=== PATIENT | male | born 1945 | race Hispanic/Latino ===

== ENCOUNTER 2017-09-15 10:39 | Emergency (ER) | payer MEDICARE, MEDICAID | END 2017-09-15 15:20 | disposition home or self-care (01) | LOC: ERS 10:39 | DX: Z43.1 Encounter for attention to gastrostomy (principal) | CPT/HCPCS: 99284 ==

== ENCOUNTER 2018-06-05 07:13 | Inpatient (IN) | payer MEDICARE, MEDICAID ==
[2018-06-05 08:04] LABS: #Eosinphils 1.2 thou/uL (0.0-0.7); #Lymphocytes 2.3 thou/uL (1.20-3.40); #Neutrophils 6.6 thou/uL (1.40-6.50); %Basophils 0.2 % (0.0-1.0); %Eosinophils 10.8 % (0.0-10.0); %Lymphocytes 20.4 % (21.0-51.0); %Neutrophils 59.6 % (42.0-75.0); Hemoglobin 13.3 g/dL (14.0-18.0); Mean Corpuscular HGB CONC 32.3 g/dL (32.0-36.0); Mean Corpuscular Hemoglobin 27.5 pg (27.0-31.0); Mean Corpuscular Volume 84.9 fL (78.0-98.0); Mean Platelet Volume 8.2 fL (7.4-10.4); Platelet Count 207 thou/uL (130-400); RBC Distribution Width 13.6 % (11.5-14.5); Red Blood Cell (RBC) Count 4.86 mill/uL (4.70-6.10); White Blood Cell (WBC) Count 11.1 thou/uL (4.8-10.8)
[2018-06-05 08:23] LABS: ALT (SGPT) 17 U/L (8-55); AST (SGOT) 16 U/L (5-34); Albumin 3.7 g/dL (3.4-4.8); Alkaline Phosphatase 104 U/L (40-150); Anion Gap 12 mmol/L (10-20); BUN (Urea Nitrogen) 20 mg/dL (8.4-25.7); Bilirubin, Total 0.5 mg/dL (0.2-1.2); Calc. Creatinine Clearance 0 mL/min (70-130); Calcium 9.2 mg/dL (7.8-10.44); Carbon Dioxide 27 mmol/L (23-31); Chloride 108 mmol/L (98-107); Estimated GFR-MDRD Greater than 90; Glucose 122 mg/dL (83-110); Potassium 4.5 mmol/L (3.5-5.1); Protein, Total 7.7 g/dL (5.8-8.1); Sodium 142 mmol/L (136-145)
--- NOTE | 2018-06-05 08:39 | RAD ---
SEMIUPRIGHT PORTABLE CHEST 1 VIEW: HISTORY: A 73-year-old male with a history of dyspnea and low O2 saturation. COMPARISON: 04/15/13. FINDINGS: Monitor leads overlie the chest. Minimal pleural and parenchymal changes in the left base which appe ar new. The right lung is clear. Heart size is upper range of normal. IMPRESSION: Minimal mostly pleural and minimal parenchymal opacity changes in the left base, evidence for a small left pleural effusion with some possible minimal or early pneumonia or pneumonitis or subsegmental a telectasis as well. Clear right chest. Atherosclerosis of the aorta. Continued short-term followup . POS: KO
[2018-06-05] MEDS ORDERED: Piperacillin/Tazobactam 4.5 GM VIAL ONE (08:44)
[2018-06-05 09:07] LABS: Base Excess-Venous 3.2 mmol/L (0 (+/- 2.5)); Bicarbonate (HCO3v) 28.6 mmol/L (1.0-85.0); Calcium, Ionized 1.18 mmol/L (1.12-1.32); Hemoglobin - Calc 14.9 g/dL (12.0-18.0); O2 Tension (PvO2) 82.3 mmHg (35.0-45.0); Potassium 4.2 mmol/L (3.4-4.7); pH (Venous) 7.411 (7.35-7.45); vO2 Saturation-calc 96.1 % (94-98)
[2018-06-05 09:12] LABS: Bilirubin Negative (Negative); Blood, Urine Negative (Negative); Glucose, Urine (Dipstick) Negative (Negative); Leukocyte Negative (Negative); Nitrite Negative (Negative); Protein, Urine (Dipstick) Trace mg/dL (Neg-Trace); Specific Gravity, Urine 1.023 (1.002-1.036); pH, Urine 7.5 (5.0-9.0)
[2018-06-05 09:17] LABS: Clarity Slightly Cloudy (Clear)
[2018-06-05] MEDS ORDERED: Acetaminophen 325 MG TAB ONE (10:38)
[2018-06-05] MEDS ORDERED: diphenhydrAMINE 50 MG/ML VIAL ONE (11:04)
[2018-06-06] MEDS ORDERED: Polyethylene Glycol 3350 17 GM Packet PER TUBE PRN (00:43)
[2018-06-06] MEDS ORDERED: Acetaminophen 325 MG TAB PO PRN (00:44)
[2018-06-06] MEDS ORDERED: Fleet Enema 133 ML BOT PR PRN (00:44)
[2018-06-06] MEDS ORDERED: Ondansetron ODT 4 MG TAB PO PRN (00:44)
[2018-06-06] MEDS ORDERED: Ondansetron HCl/PF 4 MG/2 ML Vial IVP PRN (00:44)
[2018-06-06] MEDS ORDERED: Bisacodyl 5 MG TAB PO PRN (00:44)
[2018-06-06] MEDS ORDERED: Acetaminophen 650 MG/20.3 ML UDCUP PER TUBE PRN (00:44)
[2018-06-06] MEDS ORDERED: Enoxaparin Sodium 40 MG/0.4 ML SYRINGE SC SCH (00:45)
[2018-06-06] MEDS: Acetaminophen 650 MG/20.3 ML UDCUP PER TUBE PRN (01:02)
[2018-06-06] MEDS: Sodium Chloride 0.9% 1,000 ML IV SCH ×3 (01:03→17:20)
[2018-06-06] MEDS: Vancomycin HCl 1.5 GM in Sodium Chloride 0.9% 250 ML 300 ML IVPB SCH ×2 (01:21→15:43)
[2018-06-06] MEDS: Piperacillin/Tazobactam 4.5 GM in Sodium Chloride 0.9% 100 ML IVPB SCH ×4 (04:33→20:18)
[2018-06-06 05:06] LABS: #Eosinphils 1.2 thou/uL (0.0-0.7); #Lymphocytes 1.3 thou/uL (1.20-3.40); #Monocytes 0.7 thou/uL (0.11-0.59); #Neutrophils 7.4 thou/uL (1.40-6.50); %Eosinophils 11.5 % (0.0-10.0); %Lymphocytes 12.4 % (21.0-51.0); %Monocytes 6.7 % (0.0-10.0); %Neutrophils 69.4 % (42.0-75.0); Hemoglobin 12.6 g/dL (14.0-18.0); Mean Corpuscular HGB CONC 32.6 g/dL (32.0-36.0); Mean Corpuscular Hemoglobin 27.8 pg (27.0-31.0); Mean Corpuscular Volume 85.3 fL (78.0-98.0); Mean Platelet Volume 8.4 fL (7.4-10.4); Platelet Count 209 thou/uL (130-400); RBC Distribution Width 13.5 % (11.5-14.5); Red Blood Cell (RBC) Count 4.54 mill/uL (4.70-6.10); White Blood Cell (WBC) Count 10.7 thou/uL (4.8-10.8)
[2018-06-06] MEDS: Baclofen 10 MG TAB PER TUBE SCH ×2 (05:20→20:20)
[2018-06-06 05:30] LABS: Anion Gap 12 mmol/L (10-20); BUN (Urea Nitrogen) 21 mg/dL (8.4-25.7); Calc. Creatinine Clearance 97 mL/min (70-130); Calcium 8.7 mg/dL (7.8-10.44); Carbon Dioxide 24 mmol/L (23-31); Chloride 111 mmol/L (98-107); Estimated GFR-MDRD Greater than 90; Glucose 137 mg/dL (83-110); Potassium 3.8 mmol/L (3.5-5.1); Sodium 143 mmol/L (136-145)
[2018-06-06] MEDS: Amlodipine 10 MG TAB PER TUBE SCH (10:16)
[2018-06-06] MEDS: Famotidine 20 MG TAB PER TUBE SCH ×2 (10:19→20:19)
[2018-06-06] MEDS: Metoclopramide HCl 10 MG TAB PER TUBE SCH ×2 (10:19→20:20)
[2018-06-06] MEDS: traMADol HCl 50 MG TAB PER TUBE SCH ×2 (10:19→20:20)
[2018-06-06] MEDS: Lisinopril 20 MG TAB PER TUBE SCH (10:21)
[2018-06-06] MEDS: Docusate Sodium 100 MG/10 ML UDCUP PER TUBE SCH ×2 (10:24→20:19)
--- NOTE | 2018-06-06 18:57 | PDOC.PN ---
- Subjective Encounter Start Date: 06/06/18 Encounter Start Time: 18:40 Subjective: f/u for HCAP, paraplegia and chronic dysphagia with PEG tube. Remains -: aphasic but tracks with eyes and head. Receiving Vanc/Zosyn currently. -: Nsg reports clogged PEG tube. - Objective MAR Reviewed: Yes Vital Signs & Weight: Vital Signs (12 hours) Temp Pulse Resp BP BP Pulse Ox 06/06/18 16:55 98.5 F 83 16 107/70 92 L 06/06/18 11:27 97.7 F 72 16 125/79 93 L 06/06/18 10:21 113/76 06/06/18 10:16 83 113/76 06/06/18 08:00 97.7 F 72 16 93 L 06/06/18 07:36 98.1 F 83 16 99/66 93 L Weight Weight 158 lb 11.725 oz I&O: 06/05/18 06/06/18 06/07/18 06:59 06:59 06:59 Intake Total 1100 40 Balance 1100 40 Result Diagrams: 06/06/18 04:06 06/06/18 04:06 Additional Labs: Microbiology 06/05/18 07:53 Venous blood - Left Hand Blood Culture - Preliminary Specimen has been received and culture in progress. No Growth to date. 06/05/18 07:45 Venous blood - Right Hand Blood Culture - Preliminary Specimen has been received and culture in progress. No Growth to date. Laboratory Tests 06/05/18 07:53 WBC 11.1 H Radiology Reviewed by me: Yes (PCXR - LLL infiltrate) Phys Exam - Physical Examination alert, tracks with eyes/head, aphasic HEENT: PERRLA, sclera anicteric, oral pharynx no lesions Neck: no nodes, no JVD, supple, full ROM coarse sounds bilat Respiratory: no wheezing S1, S2 Cardiovascular: RRR, no significant murmur, no rub, gallop PEG intact in epigastric region Gastrointestinal: soft, non-tender, no distention, positive bowel sounds contractures in all extremities, generalized atrophy Musculoskeletal: no edema, pulses present Skin: no rash, normal turgor, cap refill <2 seconds Dx/Plan (1) Healthcare-associated pneumonia Code(s): J18.9 - PNEUMONIA, UNSPECIFIED ORGANISM Status: Acute Comment: LLL involvement, continue Zosyn/Vancomycin, pulm support, O2 PRN (2) Dysphagia Code(s): R13.10 - DYSPHAGIA, UNSPECIFIED Status: Chronic Qualifiers: Dysphagia type: oropharyngeal phase Qualified Code(s): R13.12 - Dysphagia, oropharyngeal phase Comment: s/p PEG tube placement, monitor for recurrence (3) Acute hypernatremia Code(s): E87.0 - HYPEROSMOLALITY AND HYPERNATREMIA Status: Acute Comment: Secondary to dehydration, continue IVF's and monitor serial Na+ (4) Dementia Code(s): F03.90 - UNSPECIFIED DEMENTIA WITHOUT BEHAVIORAL DISTURBANCE Status: Chronic Comment: continue supportive mgmt (5) Hypertension Code(s): I10 - ESSENTIAL (PRIMARY) HYPERTENSION Status: Chronic Qualifiers: Hypertension type: essential hypertension Qualified Code(s): I10 - Essential (primary) hypertension Comment: Continue Lisinopril and Amlodipine, serial BP monitoring - Plan continue antibiotics, social work job titles, speech therapy, respiratory therapy, DVT proph w/SCDs Stable overall -: Continue Vancomycin/Zosyn -: Pulmonary supportive measures -: Nutritional support with TF's -: AM lab: BMP, CBC * Soda/bicarbonate for occluded PEG
[2018-06-06] MEDS: traZODone HCl 50 MG TAB PER TUBE SCH (20:19)
[2018-06-06] MEDS: Simvastatin 40 MG TAB PER TUBE SCH (20:20)
[2018-06-06] MEDS: Senokot 8.6 MG TAB PER TUBE SCH (20:21)
[2018-06-07] MEDS: Vancomycin HCl 1.5 GM in Sodium Chloride 0.9% 250 ML 300 ML IVPB SCH ×2 (02:08→14:08)
[2018-06-07 04:37] LABS: Anion Gap 10 mmol/L (10-20); BUN (Urea Nitrogen) 16 mg/dL (8.4-25.7); Calc. Creatinine Clearance 105 mL/min (70-130); Calcium 8.4 mg/dL (7.8-10.44); Carbon Dioxide 24 mmol/L (23-31); Chloride 113 mmol/L (98-107); Estimated GFR-MDRD Greater than 90; Glucose 126 mg/dL (83-110); Sodium 143 mmol/L (136-145)
[2018-06-07] MEDS: Piperacillin/Tazobactam 4.5 GM in Sodium Chloride 0.9% 100 ML IVPB SCH ×4 (04:43→20:23)
[2018-06-07] MEDS: Baclofen 10 MG TAB PER TUBE SCH ×2 (04:43→20:23)
[2018-06-07 05:16] LABS: Band 1 % (5-11); Hemoglobin 12.5 g/dL (14.0-18.0); Hypochromia SLIGHT = 6-15 cells (100X) (0-5/hpf); Lymphocytes 11 % (21-51); MDiff Complete? YES; Mean Corpuscular HGB CONC 32.6 g/dL (32.0-36.0); Mean Corpuscular Volume 86.1 fL (78.0-98.0); Mean Platelet Volume 8.5 fL (7.4-10.4); Neutrophil 88 % (42-75); PLT Morphology Comment Appears Adequate; Platelet Count 208 thou/uL (130-400); RBC Distribution Width 13.7 % (11.5-14.5); Red Blood Cell (RBC) Count 4.44 mill/uL (4.70-6.10); White Blood Cell (WBC) Count 9.2 thou/uL (4.8-10.8)
[2018-06-07] MEDS: Famotidine 20 MG TAB PER TUBE SCH ×2 (08:30→20:23)
[2018-06-07] MEDS: Docusate Sodium 100 MG/10 ML UDCUP PER TUBE SCH ×2 (08:30→20:22)
[2018-06-07] MEDS: Amlodipine 10 MG TAB PER TUBE SCH (08:30)
[2018-06-07] MEDS: traMADol HCl 50 MG TAB PER TUBE SCH ×2 (08:30→20:24)
[2018-06-07] MEDS: Metoclopramide HCl 10 MG TAB PER TUBE SCH ×2 (08:30→20:24)
[2018-06-07] MEDS: Lisinopril 20 MG TAB PER TUBE SCH (08:30)
[2018-06-07] MEDS: Sodium Chloride 0.9% 1,000 ML IV SCH (10:30)
--- NOTE | 2018-06-07 13:27 | PDOC.PN ---
- Subjective Encounter Start Date: 06/07/18 Encounter Start Time: 13:20 Subjective: f/u for HCAP, chronic dysphagia, paraplegia on current Zosyn/ Vancomycin -: No new issues reported. Tolerating TF's with Jevity 1.2 @ 55ml/h - Objective MAR Reviewed: Yes Vital Signs & Weight: Vital Signs (12 hours) Temp Pulse Resp BP BP BP Pulse Ox 06/07/18 11:43 98.5 F 82 16 99/61 93 L 06/07/18 08:30 82 136/76 06/07/18 08:00 99.3 F 83 18 94 L 06/07/18 04:00 98.8 F 87 18 156/82 H 96 Weight Weight 158 lb 11.725 oz I&O: 06/06/18 06/07/18 06/08/18 06:59 06:59 06:59 Intake Total 1100 840 30 Balance 1100 840 30 Result Diagrams: 06/07/18 03:36 06/07/18 03:36 Additional Labs: Microbiology 06/05/18 07:53 Venous blood - Left Hand Blood Culture - Preliminary Specimen has been received and culture in progress. No Growth to date. 06/05/18 07:53 Venous blood - Left Hand Blood Culture - Preliminary NO GROWTH AT 48 HOURS 06/05/18 07:45 Venous blood - Right Hand Blood Culture - Preliminary Specimen has been received and culture in progress. No Growth to date. 06/05/18 07:45 Venous blood - Right Hand Blood Culture - Preliminary NO GROWTH AT 48 HOURS Laboratory Tests 06/05/18 06/06/18 06/07/18 07:53 04:06 03:36 WBC 11.1 H 10.7 Neutrophils % 59.6 69.4 Neutrophils % (Manual) 88 H Phys Exam - Physical Examination Constitutional: NAD alert, blinks occasionally to questions HEENT: PERRLA, sclera anicteric, oral pharynx no lesions Neck: no nodes, no JVD, supple, full ROM scatttered coarse sounds in bases Respiratory: no wheezing S1, S2 Cardiovascular: RRR, no significant murmur, no rub, gallop PEG in place Gastrointestinal: soft, non-tender, no distention, positive bowel sounds contractures in all extremities Musculoskeletal: no edema, pulses present paraplegia Skin: no rash, normal turgor, cap refill <2 seconds Dx/Plan (1) Healthcare-associated pneumonia Code(s): J18.9 - PNEUMONIA, UNSPECIFIED ORGANISM Status: Acute Comment: LLL involvement, continue Zosyn/Vancomycin, pulm support, O2 PRN (2) Dysphagia Code(s): R13.10 - DYSPHAGIA, UNSPECIFIED Status: Chronic Qualifiers: Dysphagia type: oropharyngeal phase Qualified Code(s): R13.12 - Dysphagia, oropharyngeal phase Comment: s/p PEG tube placement, monitor for recurrence and measure gastric residuals (3) Acute hypernatremia Code(s): E87.0 - HYPEROSMOLALITY AND HYPERNATREMIA Status: Acute Comment: Secondary to dehydration, continue IVF's and monitor serial Na+, resolving (4) Dementia Code(s): F03.90 - UNSPECIFIED DEMENTIA WITHOUT BEHAVIORAL DISTURBANCE Status: Chronic Comment: continue supportive mgmt (5) Hypertension Code(s): I10 - ESSENTIAL (PRIMARY) HYPERTENSION Status: Chronic Qualifiers: Hypertension type: essential hypertension Qualified Code(s): I10 - Essential (primary) hypertension Comment: Continue Lisinopril and Amlodipine, serial BP monitoring - Plan continue antibiotics, social services specialist, speech therapy, DVT proph w/SCDs Stable overall -: Continue Zosyn/Vancomycin -: Nutritional support with Jevity 1.2 @ 55ml/h -: Continue IVF's another 24h then d/c -: AM lab: BMP, CBC * .
[2018-06-07 13:33] LABS: Vancomycin, Trough 19.8 ug/mL
[2018-06-07] MEDS: traZODone HCl 50 MG TAB PER TUBE SCH (20:23)
[2018-06-07] MEDS: Senokot 8.6 MG TAB PER TUBE SCH (20:24)
[2018-06-07] MEDS: Simvastatin 40 MG TAB PER TUBE SCH (20:24)
[2018-06-08] MEDS: Vancomycin HCl 1.5 GM in Sodium Chloride 0.9% 250 ML 300 ML IVPB SCH ×2 (02:49→14:29)
[2018-06-08] MEDS: Sodium Chloride 0.9% 1,000 ML IV SCH (02:53)
[2018-06-08 04:46] LABS: Band 4 % (5-11); Eosinophils 21 % (0-10); Hemoglobin 12.8 g/dL (14.0-18.0); Lymphocytes 18 % (21-51); MDiff Complete? YES; Mean Corpuscular HGB CONC 32.3 g/dL (32.0-36.0); Mean Corpuscular Hemoglobin 27.5 pg (27.0-31.0); Mean Corpuscular Volume 85.1 fL (78.0-98.0); Monocytes 7 % (0-10); Neutrophil 50 % (42-75); PLT Morphology Comment Appears Adequate; Platelet Count 214 thou/uL (130-400); RBC Distribution Width 13.4 % (11.5-14.5); Red Blood Cell (RBC) Count 4.65 mill/uL (4.70-6.10); White Blood Cell (WBC) Count 10.9 thou/uL (4.8-10.8)
[2018-06-08] MEDS: Piperacillin/Tazobactam 4.5 GM in Sodium Chloride 0.9% 100 ML IVPB SCH ×4 (04:53→22:04)
[2018-06-08] MEDS: Baclofen 10 MG TAB PER TUBE SCH ×2 (04:53→20:16)
[2018-06-08 04:57] LABS: Anion Gap 10 mmol/L (10-20); BUN (Urea Nitrogen) 11 mg/dL (8.4-25.7); Calc. Creatinine Clearance 103 mL/min (70-130); Calcium 8.4 mg/dL (7.8-10.44); Carbon Dioxide 25 mmol/L (23-31); Chloride 108 mmol/L (98-107); Estimated GFR-MDRD Greater than 90; Glucose 91 mg/dL (83-110); Potassium 4.1 mmol/L (3.5-5.1); Sodium 139 mmol/L (136-145)
[2018-06-08] MEDS: traMADol HCl 50 MG TAB PER TUBE SCH ×2 (07:55→20:16)
[2018-06-08] MEDS: Lisinopril 20 MG TAB PER TUBE SCH (07:56)
[2018-06-08] MEDS: Metoclopramide HCl 10 MG TAB PER TUBE SCH ×2 (08:00→20:15)
[2018-06-08] MEDS: Amlodipine 10 MG TAB PER TUBE SCH (08:00)
[2018-06-08] MEDS: Famotidine 20 MG TAB PER TUBE SCH ×2 (08:00→20:15)
[2018-06-08] MEDS: Docusate Sodium 100 MG/10 ML UDCUP PER TUBE SCH ×2 (08:01→20:16)
[2018-06-08 13:55] LABS: Vancomycin, Trough 18.8 ug/mL
--- NOTE | 2018-06-08 14:03 | PDOC.PN ---
- Subjective Encounter Start Date: 06/08/18 Encounter Start Time: 14:00 -: non-verbal Subjective: f/u for HCAP on current Zosyn/Vancomycin. No fever documented. - Objective MAR Reviewed: Yes Vital Signs & Weight: Vital Signs (12 hours) Temp Pulse Resp BP BP Pulse Ox 06/08/18 08:00 79 118/82 06/08/18 07:56 118/82 06/08/18 07:32 97.8 F 79 18 118/82 93 L Weight Weight 158 lb 11.725 oz I&O: 06/07/18 06/08/18 06/09/18 06:59 06:59 06:59 Intake Total 840 3175 Output Total 2 Balance 840 3173 Result Diagrams: 06/08/18 04:19 06/08/18 04:19 Additional Labs: Microbiology 06/05/18 07:53 Venous blood - Left Hand Blood Culture - Preliminary Specimen has been received and culture in progress. No Growth to date. 06/05/18 07:53 Venous blood - Left Hand Blood Culture - Preliminary NO GROWTH AT 48 HOURS 06/05/18 07:45 Venous blood - Right Hand Blood Culture - Preliminary Specimen has been received and culture in progress. No Growth to date. 06/05/18 07:45 Venous blood - Right Hand Blood Culture - Preliminary NO GROWTH AT 48 HOURS Laboratory Tests 06/05/18 06/06/18 06/07/18 07:53 04:06 03:36 WBC 11.1 H 10.7 Neutrophils % 59.6 69.4 Neutrophils % (Manual) 88 H Phys Exam - Physical Examination Constitutional: NAD alert HEENT: PERRLA, sclera anicteric, oral pharynx no lesions Neck: no nodes, no JVD, supple, full ROM few scattered coarse sounds Respiratory: no wheezing S1,S2 Cardiovascular: RRR, no significant murmur, no rub, gallop PEG site intact Gastrointestinal: soft, non-tender, no distention, positive bowel sounds contractures in all extremities Musculoskeletal: no edema, pulses present paraplegia, non-verbal Skin: no rash, normal turgor, cap refill <2 seconds Dx/Plan (1) Healthcare-associated pneumonia Code(s): J18.9 - PNEUMONIA, UNSPECIFIED ORGANISM Status: Acute Comment: LLL involvement, continue Zosyn/Vancomycin, pulm support, O2 PRN (2) Dysphagia Code(s): R13.10 - DYSPHAGIA, UNSPECIFIED Status: Chronic Qualifiers: Dysphagia type: oropharyngeal phase Qualified Code(s): R13.12 - Dysphagia, oropharyngeal phase Comment: s/p PEG tube placement, monitor for recurrence and measure gastric residuals (3) Acute hypernatremia Code(s): E87.0 - HYPEROSMOLALITY AND HYPERNATREMIA Status: Acute Comment: Secondary to dehydration, continue IVF's and monitor serial Na+, resolving (4) Dementia Code(s): F03.90 - UNSPECIFIED DEMENTIA WITHOUT BEHAVIORAL DISTURBANCE Status: Chronic Comment: continue supportive mgmt (5) Hypertension Code(s): I10 - ESSENTIAL (PRIMARY) HYPERTENSION Status: Chronic Qualifiers: Hypertension type: essential hypertension Qualified Code(s): I10 - Essential (primary) hypertension Comment: Continue Lisinopril and Amlodipine, serial BP monitoring - Plan continue antibiotics, PT/OT, social welfare research worker, speech therapy, respiratory therapy, DVT proph w/SCDs Stable overall -: Continue Vancomycin/Zosyn another 24h then de-escalate -: Nutritional supplements with Jevity 1.2 @ 55ml/h -: Precautions for aspiration -: Saline lock IVF * Likely back to [facility] in 24h
[2018-06-08 14:37] VITALS: BMI 30.9
[2018-06-08] MEDS: Simvastatin 40 MG TAB PER TUBE SCH (20:15)
[2018-06-08] MEDS: traZODone HCl 50 MG TAB PER TUBE SCH (20:15)
[2018-06-08] MEDS: Senokot 8.6 MG TAB PER TUBE SCH (20:17)
[2018-06-09] MEDS: Vancomycin HCl 1.5 GM in Sodium Chloride 0.9% 250 ML 300 ML IVPB SCH (02:16)
[2018-06-09] MEDS: Piperacillin/Tazobactam 4.5 GM in Sodium Chloride 0.9% 100 ML IVPB SCH ×2 (04:21→10:44)
[2018-06-09] MEDS: Baclofen 10 MG TAB PER TUBE SCH (06:24)
[2018-06-09] MEDS: Amlodipine 10 MG TAB PER TUBE SCH (08:09)
[2018-06-09] MEDS: Famotidine 20 MG TAB PER TUBE SCH (08:09)
[2018-06-09] MEDS: Lisinopril 20 MG TAB PER TUBE SCH (08:11)
[2018-06-09] MEDS: traMADol HCl 50 MG TAB PER TUBE SCH (08:11)
[2018-06-09] MEDS: Metoclopramide HCl 10 MG TAB PER TUBE SCH (08:13)
[2018-06-09] MEDS: Docusate Sodium 100 MG/10 ML UDCUP PER TUBE SCH (08:14)
[2018-06-09 13:26] VITALS: BP 119/69; TEMP 97.8
[2018-06-09] MEDS: Acetaminophen 650 MG/20.3 ML UDCUP PER TUBE PRN (13:35)
--- NOTE | 2018-06-09 23:29 | DIS ---
DATE OF ADMISSION: 06/05/2018 DATE OF DISCHARGE: 06/09/2018 DISCHARGE DIAGNOSES: 1. Healthcare-associated pneumonia, suspected gram positive cocci. 2. Dysphagia, chronic, oropharyngeal phase. 3. Acute hypernatremia secondary to dehydration, resolved. 4. Dehydration, resolved. 5. Dementia, chronic. 6. Hypertension, stable. 7. Paraplegia. 8. Severe deconditioning. CONSULTATIONS: None. PERTINENT LABORATORY AND X-RAY FINDINGS: Sodium ranged between 142-147. Lactic acid level 0.9. LFT s within normal limits. CBC showed a white blood cell count ranging between 9.2-11.1. Urinalysis ne gative. Blood cultures x2 dated 06/05/2018 showed no growth at 48 hours. Portable chest x-ray dated 06/05/2018 showed parenchymal opacity in the left lung base with associated small left pleural effus ion. HOSPITAL COURSE: The patient was initially admitted after presenting with increased shortness of zheng ath and mild hypoxemia with elevated temperature of 101.1 degrees Fahrenheit. The patient's history is significant for chronic paraplegia and bedbound status after CVA. Chest imaging was performed rm wing evidence of infiltrate in the left lung base concerning for pneumonia/aspiration pneumonia. The patient was placed on broad spectrum IV antibiotic therapy to include vancomycin and Zosyn and treat ed throughout the hospital course. The patient received general pulmonary supportive measures and ov erall clinically stabilized with the addition of IV antibiotic therapy. The patient with longstandin g chronic oropharyngeal phase dysphagia, receiving tube feeds with Jevity 1.2. The patient resumed t ube feeds without high gastric residuals, tolerating with a rate of 55 mL per hour. The patient also received IV fluids due to dehydration with correction of mild hypernatremia. Overall, patient did r emain clinically stable with general supportive care and IV antibiotic therapy. The patient will tra nsition to Levaquin 750 mg per PEG tube to complete a 7-day course of antibiotics after discharge. I have examined the patient and discussed followup instructions with the patient and family at the bed side. The patient ready for discharge on 06/09/2018. DISCHARGE MEDICATIONS: 1. Levaquin 750 mg per PEG tube daily x7 days. 2. Norvasc 10 mg per PEG tube daily. 3. Enteric coated aspirin 81 mg per PEG tube daily. 4. Baclofen 10 mg per PEG tube b.i.d. 5. Pepcid 20 mg per PEG tube b.i.d. 6. Lisinopril 20 mg per PEG tube daily. 7. Reglan 10 mg per PEG tube b.i.d. 8. MiraLax 17 grams per PEG tube p.r.n. constipation. 9. Zocor 40 mg per PEG tube at bedtime. 10. Ultram 50 mg per PEG tube b.i.d. p.r.n. 11. Trazodone 25 mg per PEG tube at bedtime. FOLLOWUP: The patient to follow up with Dr. Guidry at [facility]. CONDITION ON DISCHARGE: Fair. ACTIVITY: Ad buzz. Bedbound status. DIET: Tube feeds with Jevity 1.2. CODE STATUS: FULL. DISPOSITION: Discharged to [facility] where patient is a long-term resident. Total time preparing and coordinating discharge is 33 minutes.
--- NOTE | 2018-06-13 15:41 | HP ---
REFERRING PHYSICIAN: Emergency Department, Dr. Cartagena DATE OF ADMISSION: 06/05/2018 PRIMARY CARE PHYSICIAN: Dr. Leatha Duran M.D. The patient is a resident of [facility]. TIME OF SERVICE: 923 CHIEF COMPLAINT: Shortness of breath. HISTORY OF PRESENT ILLNESS: Mr. Espinoza is a 73-year-old male with a history of hypertension, hyp erlipidemia, dementia, and ischemic cerebrovascular disease who presents to the emergency department on the day of admission with complaint of shortness of breath. Per the notes, EMS was called for hypoxia where he was found to be 88% on room air during his primary med check. Temperature was 101.1 and the patient is nonverbal and so was transported to emergency d [facility]. Workup in the emergency department showed a white count of 11.1 with a fairly normal diff erential, chemistries were unremarkable, chest x-ray was significant for minimal, but mostly pleural and minimal parenchymal opacities of the left base and a possible small effusion concerning for possi ble minimal early pneumonia or pneumonitis. Right side was clear. We were subsequently called for a dmission. The patient is unable to give any further history. PAST MEDICAL HISTORY: 1. Hypertension. 2. Hyperlipidemia. 3. Hypercholesterolemia. 4. Ischemic cerebrovascular disease. 5. Dementia. 6. History of syphilis in the past. 7. GERD. 8. Depression. HOME MEDICATIONS: 1. Aspirin 81 mg daily. 2. Colace 100 mg p.o. b.i.d. 3. Tylenol 325 mg p.o. q.6 hours p.r.n. 4. Senna 8.6 mg daily. 5. Amlodipine 10 mg daily. 6. Lisinopril 20 mg daily. 7. Baclofen 10 mg p.o. b.i.d. 8. Tramadol 50 mg p.o. b.i.d. 9. MiraLax 17 grams daily. 10. Zocor 10 mg p.o. at bedtime. 11. Trazodone 50 mg p.o. daily. 13. Reglan 10 mg p.o. b.i.d. 14. Pepcid 20 mg p.o. b.i.d. 15. Zofran 4 mg p.o. q.8 hours p.r.n. nausea, vomiting. PAST SURGICAL HISTORY: Significant for G-tube placement in the past that he continues to use. ALLERGIES: LEVAQUIN causes a rash. FAMILY HISTORY: Not obtainable. SOCIAL HISTORY: Negative habits x3. He is a long-term resident at [facility]. REVIEW OF SYSTEMS: Not obtainable due to patient's nonverbal status. PHYSICAL EXAMINATION: VITAL SIGNS: Temperature on arrival to the emergency department was 100.0 rectally, pulse 79, blood pressure 134/74, respiratory rate 20, 89% on room air. GENERAL: The patient is normocephalic and atraumatic. Pupils equal, round, react to light bilateral ly, he has a little bit of green discharge from his right eye. Membrane mucous membranes are moist. No other lesions, no thrush. NECK: Supple. No lymphadenopathy, JVD, or thyromegaly. He had normal carotid upstroke. I do not a ppreciate bruits. LUNGS: Lungs have poor air movement bilaterally and poor effort. He has some faint left posterior c rackles in the base, but seem to clear with deep inspiration. CARDIOVASCULAR: Normal S1, S2. No S3, S4. No audible murmurs. ABDOMEN: Soft, is nontender, nondistended, no mass, no organomegaly. Good bowel sounds in all 4 sandy drants. PEG tube in the right upper quadrant has been placed, nontender with a clean dressing. Ther e is no erythema or drainage. SKIN: Warm, moist and well-perfused. No other rashes or lesions are present. MUSCULOSKELETAL: Normal to inspection. Large joints appear normal. There is no evidence of inflamm ation or palpable effusion. NEUROLOGIC: The patient opens his eyes and follows. He does follow simple commands, but is nonverba l. LABORATORY DATA: Sodium 142, potassium 4.5, chloride 108, bicarbonate 27, BUN 20, creatinine 0.67, g lucose 122 and calcium 9.2. Liver functions completely within normal limits. CBC showed white count 11.1, hemoglobin 13.3, hematocrit 41.3, and platelet count is 207,000. He has a fairly normal differential. D-dimer was minimally elevated at 0.94 and VBG was fairly normal. Ur inalysis was clear. RADIOGRAPHIC STUDIES: As above. ASSESSMENT AND PLAN: 1. Possible aspiration versus left lower lobe healthcare-associated pneumonia. Place the patient on admission status on Medical. The patient is currently stable. Continue his home medications for hi s chronic medical issues, Levaquin 750 mg IV q.24 hours and Zosyn at present and will narrow as we ge t more information back. We will cover him for aspiration. 2. Healthcare associated pneumonia. I do not believe this is MRSA pneumonia, but therefore will not continue vancomycin. At the time of admission, the patient is hypoxemic, did have an increased resp iratory rate to 23, normal blood pressure, normal pulse rate. He was febrile, he had an [facility] blood cell count and a probable bacterial infection; therefore does meet sepsis criteria that is p resent on admission. He did not receive any fluids in the emergency department. We will activate se psis protocol and treat appropriately.
--- NOTE | 2018-06-18 17:55 | EKG ---
Test Reason : Blood Pressure : / mmHG Vent. Rate : 076 BPM Atrial Rate : 076 BPM P-R Int : 120 ms QRS Dur : 094 ms QT Int : 380 ms P-R-T Axes : 049 019 023 degrees QTc Int : 427 ms Normal sinus rhythm Inferior infarct , age undetermined Abnormal ECG Confirmed by LUIS ENRIQUE PITT DO ([id number]), manuscript editor CARMEN SANDOVAL ([id number]) on 06/18/2018 5:55:12 PM Referred By: Confirmed By:LUIS ENRIQUE PITT DO
== END 2018-06-09 16:15 | DRG 193 ==
LOC: ERS 07:13 → T4-B 09:24
PROVIDERS: ADMIT Internal Medicine Infectious Disease; ATTEND Internal Medicine Infectious Disease
DX: J18.9 Pneumonia, unspecified organism (principal); J96.91 Respiratory failure, unspecified with hypoxia; G82.20 Paraplegia, unspecified; E87.0 Hyperosmolality and hypernatremia; I69.369 Other paralytic syndrome following cerebral infarction affecting unspecified side; I10 Essential (primary) hypertension; Y95 Nosocomial condition; E86.0 Dehydration; F03.90 Unspecified dementia, unspecified severity, without behavioral disturbance, psychotic disturbance, mood disturbance, and anxiety; Z74.01 Bed confinement status; Z93.1 Gastrostomy status; F80.1 Expressive language disorder; K21.9 Gastro-esophageal reflux disease without esophagitis; E78.5 Hyperlipidemia, unspecified; E78.00 Pure hypercholesterolemia, unspecified; I67.9 Cerebrovascular disease, unspecified; F32.9 Major depressive disorder, single episode, unspecified; Z79.82 Long term (current) use of aspirin; R13.12 Dysphagia, oropharyngeal phase; Z20.2 Contact with and (suspected) exposure to infections with a predominantly sexual mode of transmission; Z86.19 Personal history of other infectious and parasitic diseases; Z88.1 Allergy status to other antibiotic agents; I70.0 Atherosclerosis of aorta
CPT/HCPCS: 36415; 51701; 71045; 80048; 80053; 80202; 81003; 82330; 82803; 83605; 85007; 85025; 85027; 85379; 87040; 93005; 96365; 96367; 96375; A4216; J1200; J1650; J1956; J2543; J3370; J7050; J7620

== ENCOUNTER 2018-06-12 07:37 | Inpatient (IN) | payer MEDICARE, MEDICAID ==
[2018-06-12] MEDS ORDERED: diphenhydrAMINE 50 MG/ML VIAL ONE (08:06)
[2018-06-12] MEDS ORDERED: Piperacillin/Tazobactam 4.5 GM VIAL ONE (08:16)
[2018-06-12 08:37] LABS: Bilirubin Negative (Negative); Blood, Urine Negative (Negative); Clarity CLEAR (Clear); Glucose, Urine (Dipstick) Negative (Negative); Leukocyte Negative (Negative); Nitrite Negative (Negative); Protein, Urine (Dipstick) 30 mg/dL (Neg-Trace); Specific Gravity, Urine 1.015 (1.002-1.036); Urobilinogen 0.2 mg/dL (0.2-1.0); pH, Urine 6.5 (5.0-9.0)
[2018-06-12 08:40] LABS: Bacteria/HPF None Seen HPF (None Seen); Hyaline Casts/LPF 0-3 HYALINE CAST LPF (0-3 Hyaline); Pathc Cast-AUWi Flag 0.72 (0-2.49); RBC/HPF 0-3 HPF (0-3); Squamous Epithelial 0-3 HPF (0-3); WBC/HPF 0-3 HPF (0-3)
[2018-06-12 08:40] LABS: Band 13 % (5-11); Eosinophils 2 % (0-10); Hemoglobin 13.5 g/dL (14.0-18.0); Lymphocytes 15 % (21-51); MDiff Complete? YES; Mean Corpuscular HGB CONC 31.6 g/dL (32.0-36.0); Mean Corpuscular Hemoglobin 26.8 pg (27.0-31.0); Mean Corpuscular Volume 84.8 fL (78.0-98.0); Mean Platelet Volume 8.3 fL (7.4-10.4); Monocytes 6 % (0-10); Neutrophil 64 % (42-75); Platelet Count 244 thou/uL (130-400); RBC Distribution Width 13.7 % (11.5-14.5); Red Blood Cell (RBC) Count 5.01 mill/uL (4.70-6.10)
[2018-06-12 08:48] LABS: Anion Gap 16 mmol/L (10-20); Carbon Dioxide 23 mmol/L (23-31); Chloride 111 mmol/L (98-107); Potassium 4.6 mmol/L (3.5-5.1); Sodium 145 mmol/L (136-145)
[2018-06-12 08:50] LABS: ALT (SGPT) 53 U/L (8-55); AST (SGOT) 46 U/L (5-34); Albumin 3.6 g/dL (3.4-4.8); Alkaline Phosphatase 84 U/L (40-150); BUN (Urea Nitrogen) 24 mg/dL (8.4-25.7); Bilirubin, Total 0.5 mg/dL (0.2-1.2); Calc. Creatinine Clearance 0 mL/min (70-130); Estimated GFR-MDRD 56; Globulin 4.1 g/dL (2.4-3.5); Glucose 128 mg/dL (83-110); Protein, Total 7.7 g/dL (5.8-8.1)
[2018-06-12 08:55] LABS: Renal Epithelial 0-3 HPF (0-3)
[2018-06-12] MEDS ORDERED: Acetaminophen 325 MG Suppository ONE (08:57)
[2018-06-12] MEDS ORDERED: Acetaminophen 650 MG Suppository ONE (08:58)
--- NOTE | 2018-06-12 09:04 | RAD ---
CHEST 1 VIEW: Date: 06/12/18 COMPARISON: 06/05/18. HISTORY: Fever and rash. FINDINGS: Increased opacification left hemithorax, likely due to pleural effusion, with parenchymal changes. Th e degree of opacification is progressed. Limited evaluation of the cardiac silhouette. No definite pn eumothorax. IMPRESSION: Worsening opacification left hemithorax. POS: [facility]
[2018-06-12 09:37] LABS: CKMB 0.3 ng/mL (0-6.6); Troponin I Less than 0.010 ng/mL (< 0.028)
[2018-06-12] MEDS: Acetaminophen 650 MG Suppository PR PRN ×3 (11:45→21:21)
[2018-06-12] MEDS: Sodium Chloride 0.9% 1,000 ML IV SCH ×2 (11:45→23:17)
--- NOTE | 2018-06-12 11:50 | HP ---
CHIEF COMPLAINT: Pneumonia. HISTORY OF PRESENT ILLNESS: This patient is a 73-year-old male who has a history of severe neurologi c dysfunction including quadriplegia following prior CVA. The patient also has a reported history of dementia and syphilis. 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 The patient is a resident of [facility]. The patient is noncommunicative and in flexion contracture. The patient was recently admitted here to the hospital with left lower lobe pneumonia. He was treated and appeared t o be stable and was subsequently discharged on Levaquin to complete a course of antibiotics. It appe ars that the patient may have had some type of a dermatitis type reaction to the Levaquin. Today, th e patient was brought back to the hospital with fever. The patient is unable to give any history as he is nonverbal, so this information is obtained from the patient's medical record. It appears that the [facility] the [facility]. In the emergency department, further wo rkup has revealed a substantial progression of left-sided pneumonia. REVIEW OF SYSTEMS: Unobtainable as the patient is nonverbal. PAST MEDICAL HISTORY: From the record indicates that the patient has a history of prior CVA with sev ere neurologic dysfunction including quadriplegia. Patient also has advanced dementia and some histo ry of syphilis. Again, details of that are not known. Has a history of hypertension, dyslipidemia, and reflux disease. PAST SURGICAL HISTORY: The patient has surgical history of G-tube placement and tracheostomy apparen tly has some psychiatric history of depression. FAMILY HISTORY: Unknown. SOCIAL HISTORY: There is no known history of alcohol, tobacco or drug use. Again, the patient lives in the [facility]. They indicated that someone here that the family was not substan tially involved in his routine care. It should be noted that the patient has been FULL CODE. ALLERGIES: None previously known. It appears LEVAQUIN may have caused some dermatitis reaction. CURRENT MEDICATIONS: Include tramadol 50 mg p.o. b.i.d., aspirin 81 mg every day, Zocor 40 mg every day, lisinopril 20 mg every day, amlodipine 10 mg daily, acetaminophen, trazodone 25 mg at bedtime, p olyethylene glycol, MiraLax 17 grams daily, baclofen 10 mg b.i.d., Senna, Reglan 10 mg b.i.d., Colace 200 mg b.i.d., and Pepcid 20 mg b.i.d. Again, patient was recently on the Levaquin as well. PHYSICAL EXAMINATION: VITAL SIGNS: Temperature is 102, pulse 98, respirations 20, O2 sat 93% on 4 liters nasal cannula, BP is 96/53. GENERAL APPEARANCE: The patient is age appropriate. He is nonverbal. He does occasionally make eye contact. He is very contracted in a flexion type position. He is moaning occasionally, but o therwise does not appear to be significantly distressed. HEENT: Pupils are reactive. No OP lesions, although difficult to exam. HEART: Regular rate and rhythm without murmurs, gallops or rubs. LUNGS: He has substantially diminished breath sounds throughout the entire left side. ABDOMEN: Soft, nontender, nondistended with positive bowel sounds. PEG tube is in place and appears healthy. EXTREMITIES: Warm and dry with significant muscle atrophy. SKIN: Reveals a very fine superficial dermatitis, resolving and is very faint. IMAGING DATA: Chest x-ray reveals complete whiteout of the left lung. LABORATORY DATA: White count 14.0, hemoglobin 13.5, platelets 244. Sodium 145, potassium 4.6, chlor kizzy 111, BUN 24, creatinine 1.6, glucose 128. Lactic acid 1.3, AST 46, ALT 53. Troponin less than 0 .01. Albumin 3.6. BNP 101.9. Urinalysis unremarkable. IMPRESSION AND PLAN: 1. Sepsis. The patient appears to be septic based on clear evidence of infection. He had some rela tive hypotension and tachypnea in the emergency department. He has had significant fluid resuscitati on given in the emergency department with 2 liters of normal saline. His lactic acid level was not e levated. 2. Left-sided pneumonia. Patient was recently here with left-sided pneumonia which was relatively s mall. It looks substantially larger at this point. Unclear if this is progression of the previous i nfection versus new aspiration. May need to get a CT to rule out possible empyema or parapneumonic e ffusion. He has been given vancomycin and Zosyn in the emergency department. We will continue that as he is coming from the healthcare environment. Continue to support his oxygenation as needed. 3. Quadriplegia following a prior cerebrovascular accident. 4. Advanced dementia. 5. Hypertension. Continue with the lisinopril and amlodipine. 6. Hyperlipidemia. Continue with the simvastatin. 7. History of cerebrovascular accident. Continue with his blood pressure control, statin and daily aspirin. 8. Continue with the PEG feeds at the usual rate usual medications. 9. We will attempt to find family in order to address his code status.
--- NOTE | 2018-06-12 14:40 | CON ---
DATE OF CONSULTATION: 06/12/2018 SERVICE: Pulmonary Medicine. REASON FOR CONSULTATION: Pneumonia. HISTORY OF PRESENT ILLNESS: The patient is a 73-year-old white male who has been bedbound for the better part of 6 years because of stroke. He is contracted. He is nonverbal. Otherwise, he has been living in [facility]. He was recently in the hospital for pneumonia, discharged on Levaquin. He had an onset of fever and rash on the LEVAQUIN. He was discharged from the hospital 2 days ago and returns today for the same. Since he has been here, his oxygen requirements have actually gone up just a little bit. A chest x-ray demonstrating new hemiopacification of the left hemithorax. He cannot provide any additional elements of the history. PAST MEDICAL HISTORY: 1. Cerebrovascular accident. 2. Quadriplegia. 3. Dementia, advanced. 4. Syphilis. 5. Hypertension. 6. Dyslipidemia. 7. Gastroesophageal reflux disease. PAST SURGICAL HISTORY: 1. G-tube placement. 2. Tracheostomy with subsequent decannulation. FAMILY HISTORY: Noncontributory. SOCIAL HISTORY: Negative for alcohol, tobacco or illicit drug use. He is a resident at [facility]. ALLERGIES: LEVAQUIN causes a rash. MEDICATIONS: List of his inpatient medications was reviewed. No specific updates were made at this time. REVIEW OF SYSTEMS: This cannot be obtained as the patient is nonverbal. PHYSICAL EXAMINATION: VITAL SIGNS: T-max 101.3, pulse 22, blood pressure 193/46, respirations 22, saturation 95% on 4 liters nasal cannula. GENERAL: The patient is awake, alert, no apparent distress. LUNGS: Decent air entry on the right. There is decreased air movement on the left. There are rhonchi present. No prolonged expiratory phase or wheezing is appreciated. HEART: Normal rate, regular. ABDOMEN: Soft, nontender, nondistended. Bowel sounds are positive. MUSCULOSKELETAL: No cyanosis or clubbing. There is no pitting in the bilateral lower extremities. LABORATORY DATA: WBC 14.0 and up trending, band count 13%. Hemoglobin and platelets are stable. D-dimer 0.94. Basic metabolic profile is unremarkable. Liver function studies are also unremarkable. BNP 101, cardiac enzymes are negative x1. Lactate is unremarkable. Urinalysis is negative. Blood cultures x2 remain negative. IMAGIN. Chest x-ray demonstrates hemiopacification of the left hemithorax with shift of the mediastinum towards the opacification. The right lung is relatively clear. 2. Bedside ultrasound did not demonstrate a large pocket of fluid. There is a very, very small pleural effusion present, likely associated with atelectasis of the left lung. ASSESSMENT: 1. Acute hypoxic respiratory failure. 2. Healthcare-associated pneumonia. 3. Drug reaction to LEVAQUIN. 4. Hemiopacification of left thorax. DISCUSSION AND PLAN: The patient probably has a mucus plug and that has created a drop of the left lung. When he got here, he has significant sputum production and coughing fit. I will proceed with a CT of the chest. If there is persistent atelectasis of the majority of the left lung with debris in the airway, bronchoscopy will be performed. I do not see any significant fluid collection on a bedside ultrasound. As such, thoracentesis is not indicated. From my perspective, the patient is stable for transition to the medical unit, however. 70 minutes have been devoted to this patient in various activities. I personally reviewed all imaging studies and laboratory data noted within this document. For fifty percent of this time, I was interacting with the patient at the bedside or coordinating care with the care team. For the remainder of the time I was immediately available to the patient in the hospital unit. DEVIN
[2018-06-12] MEDS: Piperacillin/Tazobactam 3.375 GM in Sodium Chloride 0.9% 100 ML IVPB SCH ×2 (15:23→21:22)
--- NOTE | 2018-06-12 15:51 | CT ---
CT CHEST WITHOUT CONTRAST: 06/12/2018 PROVIDED CLINICAL HISTORY: Pneumonia. FINDINGS: The heart, pericardium, and great vessels are suboptimally evaluated in the absence of IV contrast ma terial but demonstrate an unremarkable, unenhanced CT appearance, with the exception of vascular calc ification, including coronary calcium. There is consolidation involving much of the apical and posterior aspects of the left upper lobe. Th ere is patchy consolidation involving portions of the left lower lobe. There are small bilateral ple ural effusions. There is opacification of the left lower lobe bronchus with minimal air seen within the proximal aspects of the left lower lobe bronchus. There is a poorly defined appearance to the ap ical and posterior branches of the left upper lobe bronchus, with several small foci of increased den sities seen within some of these bronchi. The visualized portions of the upper abdomen demonstrate no significant abnormality. A gallstone is seen. There is no evidence for thoracic lymph node enlargement. The osseous structures demonstrate no concerning lytic or blastic lesions. IMPRESSION: 1. Consolidation involving the left upper and left lower lobes may be on the basis of atelectasis an d/or pneumonia. There are filling defects within the associated bronchi, as described above. 2. Small bilateral pleural effusions. POS: [facility]
[2018-06-12] MEDS ORDERED: Sodium Chloride 0.9% 1,000 ML IV SCH ×2 (19:15→22:15)
[2018-06-12] MEDS: Baclofen 10 MG TAB PO SCH (21:21)
[2018-06-13] MEDS: Piperacillin/Tazobactam 3.375 GM in Sodium Chloride 0.9% 100 ML IVPB SCH ×4 (04:04→21:22)
[2018-06-13] MEDS: Acetaminophen 650 MG Suppository PR PRN ×2 (04:12→13:51)
[2018-06-13 05:08] LABS: #Eosinphils 1.2 thou/uL (0.0-0.7); #Lymphocytes 0.9 thou/uL (1.20-3.40); #Monocytes 0.6 thou/uL (0.11-0.59); #Neutrophils 6.5 thou/uL (1.40-6.50); %Basophils 0.2 % (0.0-1.0); %Eosinophils 12.6 % (0.0-10.0); %Lymphocytes 9.5 % (21.0-51.0); %Monocytes 6.8 % (0.0-10.0); Hemoglobin 10.7 g/dL (14.0-18.0); Mean Corpuscular HGB CONC 30.9 g/dL (32.0-36.0); Mean Corpuscular Hemoglobin 26.7 pg (27.0-31.0); Mean Corpuscular Volume 86.5 fL (78.0-98.0); Mean Platelet Volume 8.5 fL (7.4-10.4); Platelet Count 152 thou/uL (130-400); RBC Distribution Width 13.7 % (11.5-14.5); Red Blood Cell (RBC) Count 4.02 mill/uL (4.70-6.10); White Blood Cell (WBC) Count 9.2 thou/uL (4.8-10.8)
[2018-06-13 06:44] LABS: Anion Gap 14 mmol/L (10-20); BUN (Urea Nitrogen) 22 mg/dL (8.4-25.7); Calc. Creatinine Clearance 0 mL/min (70-130); Calcium 7.6 mg/dL (7.8-10.44); Carbon Dioxide 20 mmol/L (23-31); Chloride 117 mmol/L (98-107); Estimated GFR-MDRD 69; Glucose 146 mg/dL (83-110); Sodium 147 mmol/L (136-145)
[2018-06-13] MEDS: Enoxaparin Sodium 40 MG/0.4 ML SYRINGE SC SCH (08:30)
[2018-06-13] MEDS: Baclofen 10 MG TAB PO SCH (08:30)
[2018-06-13] MEDS: Dextrose 5% in Water 1,000 ML IV SCH (08:30)
[2018-06-13] MEDS: Vancomycin HCl 1 GM in Premix Bag 1 BAG IVPB SCH (08:31)
--- NOTE | 2018-06-13 09:44 | PRG ---
DATE OF SERVICE: 06/13/2018 SERVICE: Pulmonary Medicine. INTERVAL HISTORY: The patient is doing fine from a respiratory standpoint. He is breathing comforta isaiah. He is in no apparent distress. Yesterday, he got little tachycardic and fever. He ended up getting a liter of fluid. This improve his heart rate and his blood pressure slightly. He appea rs less toxic this morning. He is resting comfortably. PHYSICAL EXAMINATION: VITAL SIGNS: Afebrile currently with a T-max overnight of 101.3, pulse 88, blood pressure 111/50, re spirations 18, saturation 98% on 2 liters nasal cannula. GENERAL: The patient is awake. He is somnolent. HEENT: Normocephalic, atraumatic. Sclerae are white, conjunctivae pink. Oral and nasal mucosa is m oist without lesions. LUNGS: Decent air entry with rhonchi present, particularly on the left. No prolonged expiratory pha se or wheezing is appreciated. HEART: Normal rate, regular. ABDOMEN: Soft, nontender, nondistended. Bowel sounds are positive. MUSCULOSKELETAL: No cyanosis or clubbing. There is no pitting in the bilateral lower extremities. LABORATORY DATA: WBC 9.2, hemoglobin 10.7, platelets 152,000. Sodium 147, chloride 117. Basic meta bolic profile is essentially unremarkable otherwise. Cardiac enzymes negative x1. IMAGING: CT of the chest demonstrates mucus/debris in the left lower lobe. There has been significa nt reexpansion of the left lung. There is consolidating changes throughout the left lung. ASSESSMENT: 1. Acute hypoxic respiratory failure, resolved. 2. Healthcare-associated pneumonia. 3. Drug reaction to Levaquin. DISCUSSION AND PLAN: The patient will remain on vancomycin and Zosyn. Vaz cultures currently pendin g. He will need 7 days of these antibiotics. After this is completed, he can be considered for fox sition back to the nursing facility. For the rest of his life, he will need to keep head of bed elev ated to at least 30 degrees. He will also need routine physiotherapy. I will change his IV fluids o howard to just D5 water. Tube feeds will be continued. From my perspective, he is stable for transitio n to the floor.
[2018-06-13] MEDS: Sodium Chloride 0.9% 1,000 ML IV SCH (10:25)
--- NOTE | 2018-06-13 13:54 | PDOC.PN ---
- Subjective Encounter Start Date: 06/13/18 Encounter Start Time: 13:52 Subjective: seen and examined at bedside. discussed w RN -: pt opens eyes at sound but incoherent speech -: does not follow commands - Objective Resuscitation Status: Resuscitation Status DNR:Do Not Resuscitate MAR Reviewed: Yes Vital Signs & Weight: Vital Signs (12 hours) Temp Pulse Resp BP Pulse Ox 06/13/18 12:47 95 20 06/13/18 10:58 98.2 F 87 20 117/60 98 06/13/18 07:40 99.2 F 88 18 111/50 L 98 06/13/18 07:17 89 22 H 06/13/18 03:53 100.8 F H 97 22 H 115/56 L 97 Weight Weight 139 lb 15.896 oz I&O: 06/12/18 06/13/18 06/14/18 06:59 06:59 06:59 Intake Total 3022 Balance 3022 Result Diagrams: 06/13/18 03:50 06/13/18 03:50 Additional Labs: Microbiology 06/12/18 08:28 Urine Straight Catheter Urine Culture - Final No growth. 06/05/18 07:53 Venous blood - Left Hand Blood Culture - Final NO GROWTH IN 5 DAYS 06/05/18 07:45 Venous blood - Right Hand Blood Culture - Final NO GROWTH IN 5 DAYS 06/12/18 08:28 Urine Straight Catheter Urine Culture - Preliminary NO GROWTH AT 24 HOURS 06/12/18 08:05 Venous blood - Right Hand Blood Culture - Preliminary Specimen has been received and culture in progress. No Growth to date. 06/12/18 08:00 Venous blood - Right Arm Blood Culture - Preliminary Specimen has been received and culture in progress. No Growth to date. Phys Exam - Physical Examination Constitutional: NAD open seyes to sound of his name HEENT: PERRLA, moist MMs, sclera anicteric, oral pharynx no lesions Neck: no nodes, no JVD, supple, full ROM Respiratory: no wheezing, no rales minimal breath sounds left side.few rhonchi Cardiovascular: RRR, no significant murmur Gastrointestinal: soft, non-tender, no distention, positive bowel sounds Musculoskeletal: no edema, pulses present paraplegia,aphasia Psychiatric: normal affect Skin: no rash Dx/Plan (1) Sepsis Code(s): A41.9 - SEPSIS, UNSPECIFIED ORGANISM Status: Acute (2) Healthcare-associated pneumonia Code(s): J18.9 - PNEUMONIA, UNSPECIFIED ORGANISM Status: Acute Comment: LLL involvement, continue Zosyn/Vancomycin, pulm support, O2 PRN (3) Hypernatremia Code(s): E87.0 - HYPEROSMOLALITY AND HYPERNATREMIA Status: Acute (4) Dementia Code(s): F03.90 - UNSPECIFIED DEMENTIA WITHOUT BEHAVIORAL DISTURBANCE Status: Chronic Comment: continue supportive mgmt (5) Dyslipidemia Code(s): E78.5 - HYPERLIPIDEMIA, UNSPECIFIED Status: Chronic (6) Dysphagia Code(s): R13.10 - DYSPHAGIA, UNSPECIFIED Status: Chronic Qualifiers: Dysphagia type: oropharyngeal phase Qualified Code(s): R13.12 - Dysphagia, oropharyngeal phase Comment: s/p PEG tube placement, monitor for recurrence and measure gastric residuals (7) GERD (gastroesophageal reflux disease) Code(s): K21.9 - GASTRO-ESOPHAGEAL REFLUX DISEASE WITHOUT ESOPHAGITIS Status: Chronic (8) H/O: CVA (cerebrovascular accident) Code(s): Z86.73 - PRSNL HX OF TIA (TIA), AND CEREB INFRC W/O RESID DEFICITS Status: Chronic (9) Hypertension Code(s): I10 - ESSENTIAL (PRIMARY) HYPERTENSION Status: Chronic Qualifiers: Hypertension type: essential hypertension Qualified Code(s): I10 - Essential (primary) hypertension Comment: Continue Lisinopril and Amlodipine, serial BP monitoring (10) H/O: GI bleed Code(s): Z87.19 - PERSONAL HISTORY OF OTHER DISEASES OF THE DIGESTIVE SYSTEM Status: Chronic (11) Dysphagia as late effect of cerebrovascular accident (CVA) Code(s): I69.391 - DYSPHAGIA FOLLOWING CEREBRAL INFARCTION Status: Chronic Comment: PEG in place with tube feeds - Plan continue antibiotics, PT/OT, incentive spirometry, DVT proph w/SCDs cont empiric ABx, likley mucus plugging with chr aspiration -: PCT consulted -: -pt DNR after discussion with family.appreciate input -: restart home meds. HD stable. -: change IVF to D5 for hypernatremia * .OK to transfer to medical * AM labs Review of Systems - Review of Systems Other: can not be obtained due to dementia,aphasia - Medications/Allergies Allergies/Adverse Reactions: Allergies Allergy/AdvReac Type Severity Reaction Status Date / Time No Known Allergies Allergy Verified 06/05/18 11:55 Medications: Current Medications Acetaminophen (Tylenol) 650 mg GA Q4H PRN PRN Reason: Headache/Fever or Pain Last Admin: 06/13/18 04:12 Dose: 650 mg Albuterol/Ipratropium (Duoneb) 3 ml EZPAP [id number] [facility] Last Admin: 06/13/18 12:47 Dose: 3 ml Baclofen (Lioresal) 10 mg PO BID [facility] Last Admin: 06/13/18 08:30 Dose: 10 mg Enoxaparin Sodium (Lovenox) 40 mg SC 0900 [facility] Last Admin: 06/13/18 08:30 Dose: 40 mg Piperacillin Sod/Tazobactam (Sod 3.375 gm/ Sodium Chloride) 100 mls @ 200 mls/ hr IVPB 0300,0900,1500,2100 [facility] Last Admin: 06/13/18 08:30 Dose: 100 mls Vancomycin HCl 1 gm/ Device 200 mls @ 200 mls/hr IVPB Q24HR@0900 [facility] Last Admin: 06/13/18 08:31 Dose: 200 mls Dextrose/Water (D5w) 1,000 mls @ 50 mls/hr IV .Q20H [facility] Last Admin: 06/13/18 08:30 Dose: 1,000 mls Miscellaneous Medication (Pharmacy To Dose) 1 each IVPB PRN PRN PRN Reason: Pharmacy to dose
[2018-06-13] MEDS ORDERED: Polyethylene Glycol 3350 17 GM Packet PER TUBE PRN (13:57)
[2018-06-13] MEDS: Acetaminophen 650 MG/20.3 ML UDCUP PER TUBE PRN (17:37)
[2018-06-13] MEDS: Senokot 8.6 MG TAB PER TUBE SCH (21:20)
[2018-06-13] MEDS: Docusate Sodium 100 MG/10 ML UDCUP PER TUBE SCH (21:20)
[2018-06-13] MEDS: traZODone HCl 50 MG TAB PER TUBE SCH (21:20)
[2018-06-13] MEDS: Metoclopramide 10 MG/10 ML UDCUP PER TUBE SCH (21:20)
[2018-06-13] MEDS: traMADol HCl 50 MG TAB PER TUBE SCH (21:21)
[2018-06-13] MEDS: Atorvastatin Calcium 20 MG TAB PER TUBE SCH (21:22)
[2018-06-13] MEDS: Baclofen 10 MG TAB PER TUBE SCH (21:22)
[2018-06-13] MEDS: Famotidine 20 MG TAB PER TUBE SCH (21:22)
[2018-06-14] MEDS: Piperacillin/Tazobactam 3.375 GM in Sodium Chloride 0.9% 100 ML IVPB SCH ×4 (03:54→20:08)
[2018-06-14] MEDS: Acetaminophen 650 MG/20.3 ML UDCUP PER TUBE PRN ×2 (03:54→20:06)
[2018-06-14] MEDS: Dextrose 5% in Water 1,000 ML IV SCH (03:56)
[2018-06-14] MEDS: Baclofen 10 MG TAB PER TUBE SCH ×2 (05:58→20:07)
[2018-06-14 06:04] LABS: Anion Gap 11 mmol/L (10-20); BUN (Urea Nitrogen) 16 mg/dL (8.4-25.7); Calc. Creatinine Clearance 79 mL/min (70-130); Calcium 7.8 mg/dL (7.8-10.44); Carbon Dioxide 22 mmol/L (23-31); Chloride 114 mmol/L (98-107); Estimated GFR-MDRD 83; Glucose 188 mg/dL (83-110); Potassium 3.4 mmol/L (3.5-5.1); Sodium 144 mmol/L (136-145)
[2018-06-14 06:24] LABS: #Eosinphils 0.9 thou/uL (0.0-0.7); #Lymphocytes 0.9 thou/uL (1.20-3.40); #Monocytes 0.4 thou/uL (0.11-0.59); #Neutrophils 3.3 thou/uL (1.40-6.50); %Basophils 0.3 % (0.0-1.0); %Eosinophils 15.6 % (0.0-10.0); %Lymphocytes 16.6 % (21.0-51.0); %Monocytes 7.7 % (0.0-10.0); %Neutrophils 59.8 % (42.0-75.0); Hemoglobin 10.8 g/dL (14.0-18.0); Mean Corpuscular HGB CONC 31.2 g/dL (32.0-36.0); Mean Corpuscular Hemoglobin 26.6 pg (27.0-31.0); Mean Corpuscular Volume 85.4 fL (78.0-98.0); Mean Platelet Volume 8.9 fL (7.4-10.4); PLT Morphology Comment Appears Decreased; Platelet Count 105 thou/uL (130-400); RBC Distribution Width 13.9 % (11.5-14.5); Red Blood Cell (RBC) Count 4.05 mill/uL (4.70-6.10); White Blood Cell (WBC) Count 5.5 thou/uL (4.8-10.8)
[2018-06-14] MEDS: Lisinopril 20 MG TAB PER TUBE SCH (08:21)
[2018-06-14] MEDS: Metoclopramide 10 MG/10 ML UDCUP PER TUBE SCH ×2 (08:22→20:06)
[2018-06-14] MEDS: Amlodipine 10 MG TAB PER TUBE SCH (08:24)
[2018-06-14] MEDS: traMADol HCl 50 MG TAB PER TUBE SCH ×2 (08:24→20:08)
[2018-06-14] MEDS: Famotidine 20 MG TAB PER TUBE SCH ×2 (08:24→20:07)
[2018-06-14] MEDS: Enoxaparin Sodium 40 MG/0.4 ML SYRINGE SC SCH (08:25)
[2018-06-14] MEDS: Vancomycin HCl 1 GM in Premix Bag 1 BAG IVPB SCH ×2 (08:28→21:02)
[2018-06-14] MEDS ORDERED: Dextrose 5% in Water 1,000 ML IV SCH (08:56)
[2018-06-14] MEDS ORDERED: Iopamidol 370 76% 100 ML VIAL ONE (09:07)
[2018-06-14 09:53] LABS: Vancomycin, Trough 10.4 ug/mL
[2018-06-14] MEDS ORDERED: Vancomycin HCl 750 MG in Sodium Chloride 0.9% 250 ML 250 ML IVPB SCH (10:30)
[2018-06-14] MEDS ORDERED: Docusate Sodium 100 MG/10 ML UDCUP PER TUBE SCH (12:00)
[2018-06-14] MEDS ORDERED: guaiFENesin ER 600 MG TAB PO SCH (13:03)
[2018-06-14] MEDS ORDERED: Potassium Chloride 10 MEQ TAB PO SCH (13:15)
[2018-06-14] MEDS: Docusate Sodium 100 MG/10 ML UDCUP PER TUBE SCH ×2 (13:40→20:07)
--- NOTE | 2018-06-14 13:51 | PDOC.PN ---
- Subjective Encounter Start Date: 06/14/18 Encounter Start Time: 13:50 Subjective: gestures that he has abd pain and looks uncomfortable -: RN reports large blood with stools just now - Objective Resuscitation Status: Resuscitation Status DNR:Do Not Resuscitate MAR Reviewed: Yes Vital Signs & Weight: Vital Signs (12 hours) Temp Pulse Resp BP Pulse Ox 06/14/18 12:19 88 16 92 L 06/14/18 11:29 97.9 F 91 20 124/62 94 L 06/14/18 08:24 95 06/14/18 08:01 97.4 F L 86 24 H 128/59 L 96 06/14/18 07:37 95 06/14/18 07:30 92 16 95 06/14/18 07:27 78 16 93 L 06/14/18 02:15 90 18 95 06/14/18 02:00 98.6 F 89 20 105/53 L 98 Weight Admit Weight 139 lb 15.896 oz Weight 166 lb I&O: 06/13/18 06/14/18 06/15/18 06:59 06:59 06:59 Intake Total 3022 506 Balance 3022 506 Result Diagrams: 06/14/18 05:22 06/14/18 05:22 Additional Labs: Microbiology 06/12/18 08:28 Urine Straight Catheter Urine Culture - Final NO GROWTH AT 48 HOURS 06/12/18 08:05 Venous blood - Right Hand Blood Culture - Preliminary NO GROWTH AT 48 HOURS 06/12/18 08:00 Venous blood - Right Arm Blood Culture - Preliminary NO GROWTH AT 48 HOURS Phys Exam - Physical Examination uncomfortable.awake,follows simple commands HEENT: moist MMs, sclera anicteric poor oral/dental hygine Neck: no nodes, no JVD, supple, full ROM Respiratory: no wheezing, no rales, no rhonchi, clear to auscultation bilateral coarse all around Cardiovascular: RRR, no significant murmur Gastrointestinal: soft, positive bowel sounds distenede ,TTP Musculoskeletal: pulses present, edema present Psychiatric: normal affect Skin: no rash Dx/Plan (1) GI bleed Code(s): K92.2 - GASTROINTESTINAL HEMORRHAGE, UNSPECIFIED Status: Acute Qualifiers: GI bleed type/associated pathology: anorectal hemorrhage Qualified Code(s) : K62.5 - Hemorrhage of anus and rectum (2) Sepsis Code(s): A41.9 - SEPSIS, UNSPECIFIED ORGANISM Status: Acute (3) Healthcare-associated pneumonia Code(s): J18.9 - PNEUMONIA, UNSPECIFIED ORGANISM Status: Acute Comment: LLL involvement, continue Zosyn/Vancomycin, pulm support, O2 PRN (4) Hypernatremia Code(s): E87.0 - HYPEROSMOLALITY AND HYPERNATREMIA Status: Acute Comment: improved.Monitor. IVF stopped due to edema (5) Dementia Code(s): F03.90 - UNSPECIFIED DEMENTIA WITHOUT BEHAVIORAL DISTURBANCE Status: Chronic Comment: continue supportive mgmt (6) Dyslipidemia Code(s): E78.5 - HYPERLIPIDEMIA, UNSPECIFIED Status: Chronic (7) Dysphagia Code(s): R13.10 - DYSPHAGIA, UNSPECIFIED Status: Chronic Qualifiers: Dysphagia type: oropharyngeal phase Qualified Code(s): R13.12 - Dysphagia, oropharyngeal phase Comment: s/p PEG tube placement, monitor for recurrence and measure gastric residuals (8) GERD (gastroesophageal reflux disease) Code(s): K21.9 - GASTRO-ESOPHAGEAL REFLUX DISEASE WITHOUT ESOPHAGITIS Status: Chronic (9) H/O: CVA (cerebrovascular accident) Code(s): Z86.73 - PRSNL HX OF TIA (TIA), AND CEREB INFRC W/O RESID DEFICITS Status: Chronic (10) Hypertension Code(s): I10 - ESSENTIAL (PRIMARY) HYPERTENSION Status: Chronic Qualifiers: Hypertension type: essential hypertension Qualified Code(s): I10 - Essential (primary) hypertension Comment: Continue Lisinopril and Amlodipine, serial BP monitoring (11) H/O: GI bleed Code(s): Z87.19 - PERSONAL HISTORY OF OTHER DISEASES OF THE DIGESTIVE SYSTEM Status: Chronic (12) Dysphagia as late effect of cerebrovascular accident (CVA) Code(s): I69.391 - DYSPHAGIA FOLLOWING CEREBRAL INFARCTION Status: Chronic Comment: PEG in place with tube feeds - Plan continue antibiotics, PT/OT, respiratory therapy, incentive spirometry, DVT proph w/SCDs Hold Lovenox.start IV PPI BID. -: will request GI recs.KUB. Pt DNR -: DC IVF for now and monitor.increase free water Via PEG -: add Mucinex. -: Supportive care.am labs.H/H serially * . Review of Systems - Review of Systems Other: can not be obtained due to aphasia - Medications/Allergies Allergies/Adverse Reactions: Allergies Allergy/AdvReac Type Severity Reaction Status Date / Time No Known Allergies Allergy Verified 06/05/18 11:55 Medications: Current Medications Acetaminophen (Tylenol Elixir) 650 mg PER TUBE Q4H PRN PRN Reason: Pain Last Admin: 06/14/18 03:54 Dose: 650 mg Albuterol/Ipratropium (Duoneb) 3 ml EZPAP [id number] [facility] Last Admin: 06/14/18 12:19 Dose: 3 ml Amlodipine Besylate (Norvasc) 10 mg PER TUBE DAILY [facility] Last Admin: 06/14/18 08:24 Dose: 10 mg Aspirin (Aspirin Chewable) 81 mg PER TUBE DAILY [facility] Last Admin: 06/14/18 08:24 Dose: 81 mg Atorvastatin Calcium (Lipitor) 20 mg PER TUBE HS [facility] Last Admin: 06/13/18 21:22 Dose: 20 mg Baclofen (Lioresal) 10 mg PER TUBE 0600,1999 [facility] Last Admin: 06/14/18 05:58 Dose: 10 mg Docusate Sodium (Colace Liquid) 200 mg PER TUBE BID [facility] Last Admin: 06/14/18 13:40 Dose: Not Given Docusate Sodium (Colace Liquid) 200 mg PER TUBE NOW [facility] Stop: 06/14/18 14:00 Last Admin: 06/14/18 13:40 Dose: Not Given Famotidine (Pepcid) 20 mg PER TUBE BID [facility] Last Admin: 06/14/18 08:24 Dose: 20 mg Guaifenesin (Mucinex) 1,200 mg PO Q12H [facility] Piperacillin Sod/Tazobactam (Sod 3.375 gm/ Sodium Chloride) 100 mls @ 200 mls/ hr IVPB 0300,0900,1500,2100 [facility] Last Admin: 06/14/18 08:25 Dose: 100 mls Vancomycin HCl 1 gm/ Device 200 mls @ 200 mls/hr IVPB 1000,2200 [facility] Lactulose (Lactulose) 20 gm PO DAILYPRN PRN PRN Reason: Constipation Lisinopril (Zestril) 20 mg PER TUBE DAILY [facility] Last Admin: 06/14/18 08:21 Dose: 20 mg Metoclopramide HCl (Reglan) 10 mg PER TUBE BID [facility] Last Admin: 06/14/18 08:22 Dose: 10 mg Miscellaneous Medication (Pharmacy To Dose) 1 each IVPB PRN PRN PRN Reason: Pharmacy to dose Pantoprazole Sodium (Protonix) 40 mg IVP Q12HR [facility] Polyethylene Glycol (Miralax) 17 gm PER TUBE PRN PRN PRN Reason: Constipation Potassium Chloride (Klor-Con 10) 40 meq PO ONE [facility] Stop: 06/14/18 14:00 Senna (Senokot) 1 tab PER TUBE [facility] Last Admin: 06/13/18 21:20 Dose: 1 tab Sodium Chloride (Flush - Normal Saline) 10 ml IVF Q12HR [facility] Sodium Chloride (Flush - Normal Saline) 10 ml IVF PRN PRN PRN Reason: Saline Flush Tramadol HCl (Ultram) 50 mg PER TUBE BID [facility] Last Admin: 06/14/18 08:24 Dose: 50 mg Trazodone HCl (Desyrel) 25 mg PER TUBE [facility] Last Admin: 06/13/18 21:20 Dose: 25 mg
[2018-06-14] MEDS: guaiFENesin ER 600 MG TAB PO SCH (14:43)
--- NOTE | 2018-06-14 17:07 | PRG ---
DATE OF SERVICE: 06/14/2018 SERVICE: Pulmonary Medicine. INTERVAL HISTORY: The patient is doing fine from a respiratory standpoint. He has been weaned down to very little oxygen. 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 That being said, he appears to be quite comfortable. PHYSICAL EXAMINATION: VITAL SIGNS: Afebrile, earlier. He had a new temperature of 103.3, pulse 88, blood pressure 124/62, respirations 16, saturation 95% on 3 liters nasal cannula. GENERAL: The patient is awake. HEENT: Normocephalic, atraumatic. Sclerae are white, conjunctivae pink. Oral mucosa is moist without lesions. LUNGS: Decent air entry. There is no prolonged expiratory phase. There is rhonchi throughout the left. No wheezing or crackles are appreciated. HEART: Normal rate, regular. ABDOMEN: Soft, nontender, nondistended. Bowel sounds are positive. MUSCULOSKELETAL: No cyanosis or clubbing. There is no pitting in the bilateral lower extremities. NEUROLOGIC: Grossly nonfocal. LABORATORY DATA: WBC 5.5, hemoglobin 10.8, platelets 105,000. Potassium 3.4, chloride 114 and down trending. Sodium 144 and improving. Basic metabolic profile is otherwise unremarkable. Blood cultures x2 and urine culture unremarkable. ASSESSMENT: 1. Acute hypoxic respiratory failure. 2. Healthcare-associated pneumonia. 3. Drug reaction to Levaquin DISCUSSION AND PLAN: The patient needs a full 7-day course of vancomycin and Zosyn. Vaz cultures remain negative. The eosinophil count is increasing, which we will continue to follow. I will check a urine eosinophil level. We will continue our free water. Pulmonary or Critical Care will continue to follow along for the next 24 hours. I will repeat blood cultures because of the recent fever spike. [facility]
--- NOTE | 2018-06-14 18:15 | CT ---
CT OF ABDOMEN AND PELVIS PERFORMED WITH CONTRAST ENHANCEMENT: 06/14/18 HISTORY: Abdominal pain. COMPARISON: CT of the chest performed 06/12/18. There are small bilateral pleural effusions, left larger than right with some bibasilar atelectatic l liv change. The changes at the left base have a slightly more consolidated appearance. They are impro aria as compared to the prior exam. The liver and spleen show no focal abnormalities. The pancreas region is unremarkable. Gallstone is n oted. Right and left adrenal glands and right and left kidneys are normal in size. No significant periaorti c or mesenteric adenopathy. A percutaneous gastrostomy tube is in good position. CT OF PELVIS PERFORMED WITH CONTRAST ENHANCEMENT: There is diverticulosis of the colon mainly related to descending and sigmoid region. The appendix is normal. Moderate amount of stool present in the rectum. The bladder is not fully distended but the b ladder wall appears slightly thickened. No free fluid or any significant adenopathy. Review of osseous structures show no lytic or blastic bony lesions. IMPRESSION: 1. Small bilateral pleural effusions with some bibasilar lung change. 2. Gallstone. 3. PEG tube in good position. 4. Colonic diverticulosis. POS: [facility]
[2018-06-14] MEDS: traZODone HCl 50 MG TAB PER TUBE SCH (20:06)
[2018-06-14] MEDS: Pantoprazole 40 MG VIAL IVP SCH (20:06)
[2018-06-14] MEDS: Atorvastatin Calcium 20 MG TAB PER TUBE SCH (20:07)
[2018-06-14] MEDS: Senokot 8.6 MG TAB PER TUBE SCH (20:07)
[2018-06-14] MEDS ORDERED: Vancomycin HCl 1 GM in Premix Bag 1 BAG IVPB SCH (21:00)
[2018-06-15] MEDS: guaiFENesin ER 600 MG TAB PO SCH ×2 (00:31→13:13)
[2018-06-15] MEDS: Piperacillin/Tazobactam 3.375 GM in Sodium Chloride 0.9% 100 ML IVPB SCH ×2 (02:44→09:44)
[2018-06-15 04:27] LABS: #Eosinphils 0.5 thou/uL (0.0-0.7); #Lymphocytes 0.9 thou/uL (1.20-3.40); #Monocytes 0.6 thou/uL (0.11-0.59); #Neutrophils 4.2 thou/uL (1.40-6.50); %Basophils 0.2 % (0.0-1.0); %Eosinophils 8.8 % (0.0-10.0); %Lymphocytes 13.8 % (21.0-51.0); %Monocytes 8.9 % (0.0-10.0); %Neutrophils 68.4 % (42.0-75.0); Hemoglobin 11.1 g/dL (14.0-18.0); Mean Corpuscular HGB CONC 31.4 g/dL (32.0-36.0); Mean Corpuscular Hemoglobin 26.7 pg (27.0-31.0); Mean Corpuscular Volume 85.1 fL (78.0-98.0); Mean Platelet Volume 9.3 fL (7.4-10.4); Platelet Count 114 thou/uL (130-400); RBC Distribution Width 13.9 % (11.5-14.5); Red Blood Cell (RBC) Count 4.14 mill/uL (4.70-6.10); White Blood Cell (WBC) Count 6.2 thou/uL (4.8-10.8)
[2018-06-15 04:34] LABS: Anion Gap 12 mmol/L (10-20); BUN (Urea Nitrogen) 15 mg/dL (8.4-25.7); Calc. Creatinine Clearance 70 mL/min (70-130); Calcium 7.8 mg/dL (7.8-10.44); Carbon Dioxide 23 mmol/L (23-31); Chloride 112 mmol/L (98-107); Estimated GFR-MDRD 73; Glucose 122 mg/dL (83-110); Potassium 3.7 mmol/L (3.5-5.1); Sodium 143 mmol/L (136-145)
[2018-06-15] MEDS: Baclofen 10 MG TAB PER TUBE SCH (05:26)
[2018-06-15 08:07] VITALS: BP 112/56; TEMP 98.9
--- NOTE | 2018-06-15 09:26 | CON ---
DATE OF CONSULTATION: 06/14/2018 REASON FOR CONSULTATION: Gastrointestinal bleed, abdominal pain, and DNR. HISTORY OF PRESENT ILLNESS: Mr. Espinoza is a 73-year-old gentleman, who was admitted to the [facility] from nursing facility where he resides and has since CVA. The patient cannot add any history. The nurses informed me that he came in mainly in transfer for some change in mental status and fever. Declan martinez was discharged from this hospital on 06/09/2018 when he had been here from the night of 06/09/2018 with healthcare-associated pneumonia and dysphagia, for which he has had a PEG placed years ago; hype rnatremia secondary to dehydration. On reviewing the admission H and P from 06/12/2018, it is noted that the patient is noncommunicative and there are flexion contractures and lives at [facility]. This admission, he was brought back to the hospital with fever. In the emergency room, x-ray revealed a possible progression of left-sided pneumonia. He presented with a white count of 14,000 and hemoglob in of 13, normal electrolytes, lactic acid of 1.3, mild elevation of AST and ALT, and was started on broad-spectrum antibiotics. He was seen by Dr. Nguyen of Pulmonology, who felt that possibly he had a mucus plug in his left lung, possibly atelectasis, or even an effusion. He went ahead and got a C AT scan of the chest, which showed consolidation of the left upper lung and left lower lung field. T he patient was noted to have pretty rapid improvement in his hypoxemia. It was felt that a lot of hi s rash and fever possibly were Levaquin reaction. He was switched to vancomycin and Zosyn. There wa s a concern that possibly he had some aspiration and it was recommended that his head of his bed be e levated at all times. Today, apparently there may have been some blood in the patient's stool. Dr. Quinn's note indicates the patient was gesturing that he had abdominal pain and looked uncomfortabl e. He was noted to be distended on exam. A GI consult was made. In talking with the nurses today, he has not had them in the past, but he has been somewhat samuel matous recently. He has had brown stools they have seen and has had kind of seepage of stools that s eem fairly soft. There has been no hematemesis or blood return from the feeding tube. PAST MEDICAL HISTORY: CVA with resultant quadriplegia. He has got severe neurologic dysfunction aubrey t does not really interact in any meaningful way and has had issues in terms of communication and has significant contractures. Feeding via PEG tube, which was placed 2 years ago, plus he also has issues with hypertension, hyperl ipidemia, chronic constipation, muscle spasms. PAST SURGICAL HISTORY: Tracheostomy in the past. FAMILY HISTORY: Unable to be obtained. Admission notes indicate it was not contributory. SOCIAL HISTORY: Negative for alcohol, drugs, or tobacco. He is a resident of [facility] . ALLERGIES: Apparently to LEVAQUIN, which we gave at last admission, causes rash. MEDICATIONS: Here, Tylenol, DuoNeb, Norvasc, aspirin, , Lipitor, baclofen 10 b.i.d., Colace, Pe pcid, Mucinex, lactulose, given via the PEG, Reglan, morphine p.r.n., Protonix, Zosyn, MiraLax, senna , tramadol, trazodone, vancomycin. HOME MEDICATIONS: Norvasc, acetaminophen, senna, MiraLax, aspirin, Pepcid, Reglan, Colace, baclofen, lisinopril, Zocor, Ultram. PHYSICAL EXAMINATION: GENERAL: The patient is resting in bed. The patient is a little bit erythematous all over, but ther e is no fine rash. This probably is related to his fever. VITAL SIGNS: Temperature is 97.4 by the nurse, it was 101.3 on the 16th. The aid just stated here w hen I examined the patient, it was 103; pulse had been 88; blood pressure 124/62; respirations 16; O2 sat 92%. HEENT: Oropharynx without lesions. NECK: Supple without adenopathy. LUNGS: Clear. HEART: Regular rate and rhythm without clicks or murmurs. ABDOMEN: Protuberant, but nontender. There is some subcutaneous edema. There is some edema in his legs and his sacral area. There is evidence of hernias. Bowel sounds are positive. There is no pal pable hepatosplenomegaly. There is no shifting dullness or fluid wave. RECTAL EXAMINATION: Reveals brown loose stool. There is no blood. LABORATORY STUDIES: White count has come down from 14 on the 16th to 5.5 today; hemoglobin was 13.5, is down to 10.8 with hydration. His baseline is around 12-13. His platelets are 105. Neutrophils 59%. Sodium 144, potassium 3.4, BUN 16, creatinine 0.9. On admission, liver function tests were nor mal except for AST of 46, ALT was 53, alkaline phosphatase of 83. UA negative. CT of the chest and x-rays noted on admission as above. ASSESSMENT: 1. The patient was admitted after recently being in the hospital with pneumonia and given Levaquin. He had some fever and possibly drug reaction with rash to that. He was readmitted and it was felt t hat his pneumonia was worse. He was put on different antibiotics. He had no fever until today he coleman s a fever of 103. He has got some mildly protuberant abdomen and nurse noted possibly some blood in his stool in a recent bowel movement, but now there is no blood at all. In fact, it is just brown an d loose. With regard to his distention, he is nontender. Some of this may be bowel gas. There are no palpable masses. It is also possible some of this is edema and anasarca. 2. The complicating factor is it seems that possibly this patient is going to be [facility]. Dr. Quinn states that that is going to be after the hospitalization a nd that presently we are still actively treating looking for problems and issues to treat. RECOMMENDATIONS: 1. At this time, I do not see a need for an endoscopy. He is not having any active hemorrhage. 2. With regard to his fever and his abdominal distention, I would get a CAT scan of his abdomen and pelvis and this is the only way we are going to be able to tell what is going on. 3. I would also check a C. difficile. He has been on antibiotics for a couple of weeks now and that may be most likely etiology for him to be having loose stools and distention. There are no signs of toxic megacolon presently. He does have bowel sounds. There are no signs of overt ileus. Although , I think with fever of 103, if he is not going to be on hospice now, then this will need to be worke d up in the above-noted fashion. These issues are discussed with the patient's nurse as well.
[2018-06-15] MEDS: traMADol HCl 50 MG TAB PER TUBE SCH (09:42)
[2018-06-15] MEDS: Pantoprazole 40 MG VIAL IVP SCH (09:42)
[2018-06-15] MEDS: Lisinopril 20 MG TAB PER TUBE SCH (09:43)
[2018-06-15] MEDS: Docusate Sodium 100 MG/10 ML UDCUP PER TUBE SCH (09:43)
[2018-06-15] MEDS: Amlodipine 10 MG TAB PER TUBE SCH (09:44)
[2018-06-15] MEDS: Metoclopramide 10 MG/10 ML UDCUP PER TUBE SCH (09:44)
[2018-06-15] MEDS: Vancomycin HCl 1 GM in Premix Bag 1 BAG IVPB SCH (11:14)
--- NOTE | 2018-06-15 23:48 | DIS ---
DATE OF ADMISSION: 06/12/2018 DATE OF DISCHARGE: 06/15/2018 DISCHARGE DISPOSITION: Back to [facility] with [facility]. ACCEPTING PHYSICIAN: Leatha Duran M.D. DISCHARGE DIAGNOSES: 1. Acute hypoxic respiratory failure. 2. Gastrointestinal bleed. 3. Sepsis. 4. Healthcare-associated pneumonia. 5. Hypernatremia, resolved. 6. Dementia. 7. Dyslipidemia. 8. Dysphagia status post PEG tube placement in the past. 9. Gastroesophageal reflux disease. 10. History of cerebrovascular accident with residual paraplegia. 11. Hypertension. 12. History of gastrointestinal bleed. DISCHARGE MEDICATIONS: Remains the same as admission medication. Please see admission history and p hysical for further detail. No changes were made. These medications would need to be adjusted as pe r the hospice team. He is on the following: Norvasc, MiraLax, Senokot, Tylenol p.r.n., Pepcid 20 b. i.d., Reglan 10 b.i.d., baclofen 10 b.i.d., trazodone 25 at bedtime, lisinopril 20 mg daily, Zocor 40 mg daily. New medications, Mucinex 1200 mg p.o. q.12 hours, Protonix 40 mg p.o. b.i.d. INHOUSE CONSULTATIONS: 1. Pulmonary Critical Care, Zackery Nguyen M.D. 2. Gastroenterology, Jared Sofia M.D. PROCEDURES DONE IN THE HOSPITAL: 1. Chest x-ray upon presentation, which showed left lung opacification. 2. CT scan of the chest on 06/12/2018, which shows consolidation of left upper and left lower lobes with atelectasis and pneumonia. 3. CT scan of the abdomen and pelvis with contrast, which showed small bilateral pleural effusion, g allstones, otherwise unremarkable. Colonic diverticulosis is seen. PEG tube is in good position. HISTORY OF PRESENTING ILLNESS: Mr. Espinoza is an unfortunate 73-year-old male who is quadriplegic a fter CVA as well as history of dementia who is essentially bedbound and has a PEG tube for feedings a nd is completely aphasic and lives in a half-way, who presented to the emergency room for hypoxia and increasing oxygen requirement at the half-way. He was just discharged from our facility aft er being here and treated for pneumonia with Levaquin. Apparently, he had fever and rash on Levaquin , which was stopped at [facility]. He shortly became hypoxic and was sent back to the hospital where the chest x-ray demonstrated new hemiopacification of the left hemithorax. He was diagnosed with acu te hypoxic respiratory failure secondary to healthcare-associated pneumonia and was started on IV emp iric antibiotics. HOSPITAL COURSE: The patient did fairly okay up until yesterday. He remained dependent on the oxyge n with a very poor baseline status. Palliative Care team was consulted and his immediate family incl uding niece and nephew were consulted and after multiple discussions, the patient was changed from fu ll code to do not resuscitate given his extremely poor prognosis and the gravity of the situation and very less chance of any meaningful recovery. The patient was getting ready to be discharged back to [facility] on oral antibiotics, but he had bloo dy movement with bowels. He also was complaining of abdominal pain yesterday. A CT scan of the abdo men and pelvis was done and Gastroenterology was consulted. Tube feeds were held and he was started on Protonix twice a day. CT scan was rather unremarkable. Given his advanced contractures and bed b ound status and the fact that he was hemodynamically stable without a drop in H and H, colonoscopy an d endoscopy were deferred. As of this morning, family has decided to take the patient back to half-way with hospice as there is a very minimal chance of any recovery. The patient was seen and examined this morning and he is resting comfortably. His belly is benign an d he has no tenderness to palpation. He is completely aphasic and because of advanced dementia, he c annot answer my questions or follow any commands. He will be discharged back to [facility] with [facility]. PHYSICAL EXAMINATION: VITAL SIGNS: This morning, temperature 98.2, pulse of 90, respirations 20, saturating 98% on room ai r, blood pressure 112/56. GENERAL: No acute distress. He wakes up to the sound stimuli, but falls back asleep quickly. CHEST: Showed diffuse coarse breath sounds bilaterally. CARDIAC: Rate and rhythm are regular. ABDOMEN: Mildly distended. No tenderness to palpation. EXTREMITIES: Showed pitting edema bilaterally. LABORATORY DATA: Blood cultures x2 are negative so far. Clostridium difficile is negative. Urine c ulture negative so far. Total time spent in the discharge of this patient, 32 minutes.
--- NOTE | 2018-06-18 13:19 | EKG ---
Test Reason : TACHY Blood Pressure : / mmHG Vent. Rate : 101 BPM Atrial Rate : 101 BPM P-R Int : 114 ms QRS Dur : 086 ms QT Int : 338 ms P-R-T Axes : 024 -03 036 degrees QTc Int : 438 ms Sinus tachycardia with Premature atrial complexes Confirmed by JUAN RAND ([id number]), assignment desk editor CARMEN SANDOVAL ([id number]) on 06/18/2018 1:19:01 PM Referred By: Confirmed By:JUAN RAND
== END 2018-06-15 14:17 | disposition hospice, inpatient (51) | DRG 871 ==
LOC: ERS 07:37 → IMCU/EMU 10:14 → ONC 06-13 23:16
PROVIDERS: ADMIT Internal Medicine; ATTEND Internal Medicine
DX: A41.9 Sepsis, unspecified organism (principal); J96.01 Acute respiratory failure with hypoxia; J18.9 Pneumonia, unspecified organism; G82.50 Quadriplegia, unspecified; K92.2 Gastrointestinal hemorrhage, unspecified; E87.0 Hyperosmolality and hypernatremia; Y95 Nosocomial condition; F03.90 Unspecified dementia, unspecified severity, without behavioral disturbance, psychotic disturbance, mood disturbance, and anxiety; E78.5 Hyperlipidemia, unspecified; R13.10 Dysphagia, unspecified; K21.9 Gastro-esophageal reflux disease without esophagitis; Z86.73 Personal history of transient ischemic attack (TIA), and cerebral infarction without residual deficits; I10 Essential (primary) hypertension; Z74.01 Bed confinement status; Z51.5 Encounter for palliative care; Z66 Do not resuscitate
CPT/HCPCS: 36415; 51701; 71045; 71250; 74177; 80048; 80053; 80202; 81003; 81015; 82553; 83605; 83880; 84484; 85025; 87040; 87086; 87324; 87449; 89190; 93005; 94640; 94667; 94668; 94760; 96365; 96367; 96375; A4216; C9113; J1200; J1650; J2270; J2543; J3370; J7050; J7620

== ENCOUNTER 2018-06-20 12:21 | Inpatient (IN) | payer MEDICARE, MEDICAID ==
[2018-06-20] MEDS ORDERED: Acetaminophen 650 MG Suppository ONE (12:41)
[2018-06-20] MEDS ORDERED: Hydrocortisone Sod Succ/PF 100 mg/2 ml Vial ONE (12:46)
[2018-06-20] MEDS ORDERED: Piperacillin/Tazobactam 4.5 GM VIAL ONE (13:00)
[2018-06-20 13:33] LABS: Bilirubin Negative (Negative); Blood, Urine Negative (Negative); Clarity CLOUDY (Clear); Glucose, Urine (Dipstick) Negative (Negative); Leukocyte Trace (Negative); Nitrite Negative (Negative); Protein, Urine (Dipstick) Negative (Neg-Trace); Specific Gravity, Urine 1.022 (1.002-1.036)
[2018-06-20 13:36] LABS: Bacteria/HPF None Seen HPF (None Seen); Squamous Epithelial 0-3 HPF (0-3); WBC/HPF 0-3 HPF (0-3)
[2018-06-20 13:54] LABS: Other Casts/LPF 0-3 COARSE GRAN LPF (0-3 Hyaline)
--- NOTE | 2018-06-20 14:08 | RAD ---
PORTABLE CHEST: HISTORY: Concern of sepsis and pneumonia. COMPARISON: A 06/12/18 study which included a portable chest and a CT of the chest. FINDINGS: Heart size and mediastinum are within normal limits. The lungs are clear of any infiltrative process . There is a substantial difference in the appearance of the left chest as compared to the prior exa mination where there were pneumonic-type changes of the left upper and lower lung suarez. This appea rs very significant and it is unusual that this has cleared this quickly. I discussed the possibilit y of an incorrect patient with the technologist who rechecked and does verify that this is the correc t patient. IMPRESSION: No active intrathoracic disease. POS: JUNE
[2018-06-20 15:35] LABS: Hemoglobin 11.7 g/dL (14.0-18.0); Mean Corpuscular HGB CONC 30.7 g/dL (32.0-36.0); Mean Corpuscular Hemoglobin 25.9 pg (27.0-31.0); Mean Corpuscular Volume 84.3 fL (78.0-98.0); Mean Platelet Volume 8.4 fL (7.4-10.4); Platelet Count 242 thou/uL (130-400); RBC Distribution Width 14.2 % (11.5-14.5); Red Blood Cell (RBC) Count 4.52 mill/uL (4.70-6.10); White Blood Cell (WBC) Count 8.6 thou/uL (4.8-10.8)
--- NOTE | 2018-06-20 15:37 | RAD ---
PORTABLE CHEST ONE VIEW: Date: 06-20-18 Time: 3:09 p.m. History: Central line placement. FINDINGS/IMPRESSION: There has been interval placement of a left subclavian central line with tip in the projection of the SVC since earlier exam at 12:23 p.m. on the same date. Heart size is normal. The lungs are well expa nded without lobar consolidation, pneumothorax or pleural effusions. POS: KO
[2018-06-20 15:50] LABS: Band 46 % (5-11); Hypochromia SLIGHT = 6-15 cells (100X) (0-5/hpf); Lymphocytes 9 % (21-51); MDiff Complete? YES; Metamyelocyte 2 % (0-0); Neutrophil 43 % (42-75); PLT Morphology Comment Appears Adequate; Vacuoles SLIGHT
[2018-06-20 16:04] LABS: ALT (SGPT) 119 U/L (8-55); AST (SGOT) 61 U/L (5-34); Albumin 2.4 g/dL (3.4-4.8); Alkaline Phosphatase 82 U/L (40-150); Anion Gap 15 mmol/L (10-20); BUN (Urea Nitrogen) 51 mg/dL (8.4-25.7); Bilirubin, Total 0.6 mg/dL (0.2-1.2); Calc. Creatinine Clearance 0 mL/min (70-130); Calcium 7.1 mg/dL (7.8-10.44); Carbon Dioxide 19 mmol/L (23-31); Chloride 112 mmol/L (98-107); Estimated GFR-MDRD 29; Globulin 2.7 g/dL (2.4-3.5); Glucose 138 mg/dL (83-110); Potassium 5.6 mmol/L (3.5-5.1); Protein, Total 5.1 g/dL (5.8-8.1); Sodium 140 mmol/L (136-145)
[2018-06-20] MEDS ORDERED: Sodium Chloride 0.9% 1,000 ML IV SCH (17:45)
[2018-06-20] MEDS ORDERED: Ondansetron HCl/PF 4 MG/2 ML Vial IVP PRN (17:53)
[2018-06-20] MEDS: Lorazepam 2 MG/ML VIAL SLOW IVP PRN (19:47)
[2018-06-20 19:51] VITALS: BMI 28.0
[2018-06-20] MEDS: Heparin 5,000 UNITS/ML VIAL SC SCH (20:05)
[2018-06-20] MEDS ORDERED: Vancomycin HCl 1 GM in Premix Bag 1 BAG IVPB SCH (21:00)
[2018-06-20] MEDS ORDERED: Famotidine/PF 20 mg/2ml Vial SLOW IVP SCH (21:00)
[2018-06-20] MEDS: Sodium Chloride 0.9% 1,000 ML IV SCH (21:03)
[2018-06-20] MEDS: Piperacillin/Tazobactam 2.25 GM in Sodium Chloride 0.9% 100 ML IVPB SCH (21:24)
--- NOTE | 2018-06-20 22:51 | HP ---
PRIMARY CARE PHYSICIAN: Dr. Duran. CHIEF COMPLAINT: Hypotension and tachycardia. HISTORY OF PRESENT ILLNESS: The history of present illness is taken primarily from review of the [facility] records and discussion with the family who is at the bedside. Mr. Espinoza is an unfortunate 73 -year-old gentleman that is basically aphasic. He has a functional quadriplegia after having a massi ve stroke and has a PEG tube in place. He was actually recently discharged from our facility [facility] 5 days ago for hypoxic respiratory failure secondary to pneumonia as well as a GI bleed. He w as treated and stabilized and then discharged to the [facility] on hospice. Apparently timbo martinez began to get hypoxic and hypotensive in the long-term and then was sent back to our facility. I spoke with the sister who is at the bedside and apparently she had revoked hospice in the interim as she was thinking that he did not seem that much different than what he normally seen and then when timbo martinez became sicker, they brought him back to the ER for evaluation. When I see the patient, he is curre ntly on BiPAP. He is hypotensive. He is in Trendelenburg, aphasic and appears to be in somewhat dis tress due to dyspnea. He also has significant rash over most of his body and unable to communicate. He does follow me or track in the room, but otherwise he is noncommunicative. REVIEW OF SYSTEMS: This is unobtainable due to the patient's physical and mental state. PAST MEDICAL HISTORY: Derived from the previous history and physical dated 06/15/2018 and includes h ypertension, dementia, hyperlipidemia, cerebrovascular accident with aphasia, dysphasia and quadriple fabricio, gastroesophageal reflux disease, as well as depression. PAST SURGICAL HISTORY: He has had a G-tube placed. ALLERGIES: LEVAQUIN. FAMILY HISTORY: Unknown. SOCIAL HISTORY: He currently resides at [facility]. He had previously been on hospice, but this was revoked. His code status is DNR. He is a nonsmoker, nondrinker. MEDICATIONS: Taken from the emergency room records and include aspirin 81 mg daily, Colace 100 mg tw ice a day, Tylenol 325 mg q.6 hours as needed, senna 8.6 mg daily, amlodipine 10 mg daily, lisinopril 20 mg daily, baclofen 10 mg twice a day, tramadol 50 mg twice daily, MiraLax 17 grams daily, simvast atin 10 mg daily, trazodone 50 mg once a day, Reglan 10 mg twice daily, Pepcid 20 mg twice a day, Zof ran 4 mg every 8 hours as needed. PHYSICAL EXAMINATION: GENERAL: He is contracted, aphasic. He appears to be in some respiratory distress. VITAL SIGNS: Blood pressure was 86/30, heart rate is 131, respiratory rate of 39, temperature was 10 1.4 rectally. HEENT: Pupils are reactive. Extraocular muscles are intact. His sclerae are somewhat pale. His te eth were clenched and he is on BiPAP and therefore is unable to assess. NECK: There is no adenopathy, no bruits. LUNGS: He has got tight wheezing throughout and some coarse breath sounds bilaterally and decreased breath sounds at the bases. CARDIOVASCULAR: Heart rate is tachycardic. There are no murmurs, clicks, no rubs. ABDOMEN: Soft, slightly distended. Tympanic to percussion. Positive for bowel sounds. EXTREMITIES: Contracted both his upper and lower extremities. He has got a fine red rash bilaterall y. Significant muscle atrophy. NEUROLOGIC: Again muscle contractions and spastic paralysis in both the upper and lower extremities. LABORATORY RESULTS: White blood cell count 8.6, hemoglobin 11.7, hematocrit is 38.1, platelet count is 242. Sodium was 140, potassium 5.6, chloride is 112, CO2 is 19, BUN of 51, creatinine of 2.21, gl ucose is 130. Lactic acid was 4.0. Urinalysis was essentially negative. His chest x-ray by my read ing has a normal heart size and there was no evidence of any infiltrate or effusion. ASSESSMENT AND PLAN: This is a 73-year-old gentleman who has been brought to the emergency room with hypotension, acute renal failure and elevated lactic acid, likely all due to sepsis. The source of which is likely due to aspiration pneumonia given his recent history of hospitalization for pneumonia . He also has a metabolic acidosis and hyperkalemia. He will be admitted to the IM, therefore, 1. Acute respiratory failure with hypoxemia, likely secondary to aspiration pneumonia. We will plac e him on Zosyn since he has recently been in the hospital. We will need to cover for hospital acquir ed pneumonia as well and add vancomycin to this. We will continue BiPAP and since he will be placed in the IMCU. Pulmonary Critical Care will be consulted. 2. Sepsis. Continue fluid resuscitation. He is a DNR and therefore we will not initiate any presso rs 3. Acute renal failure. This is likely secondary to sepsis. We will continue fluid resuscitation. 4. Hyperkalemia is likely as a result of the acute renal failure. He will be treated with Kayexalat e for this. 5. Metabolic acidosis. Hopefully, treatment of the sepsis will result in correction of the metaboli c acidosis. 6. Code status is DNR. I discussed with the sister at bedside that his condition is extremely grave and likely efforts at aggressive treatment will be futile. This is his third admission in less than a month and it is likely he will have repeat admissions and ultimately will succumb to his overall i llness. She seemed a little reluctant to hear this. Her was at the bedside and helped in tr anslation. We discussed reconsidering hospice care and she was agreeable to this. We will continue to treat aggressively and consult hospice. I suspect that he may be a candidate for inpatient hospit wi hospice. If aggressive care withdrawn, I doubt that he would survive more than a couple of days.
[2018-06-21] MEDS ORDERED: Acetaminophen 650 MG in Premix Bag 1 BAG IVPB SCH (01:30)
[2018-06-21] MEDS: Sodium Chloride 0.9% 1,000 ML IV SCH (03:57)
[2018-06-21] MEDS: Piperacillin/Tazobactam 2.25 GM in Sodium Chloride 0.9% 100 ML IVPB SCH (06:26)
[2018-06-21 06:53] LABS: Anion Gap 18 mmol/L (10-20); BUN (Urea Nitrogen) 70 mg/dL (8.4-25.7); Calc. Creatinine Clearance 18 mL/min (70-130); Carbon Dioxide 18 mmol/L (23-31); Chloride 114 mmol/L (98-107); Estimated GFR-MDRD 18; Glucose 85 mg/dL (83-110); Potassium 7.2 mmol/L (3.5-5.1); Sodium 143 mmol/L (136-145)
[2018-06-21 07:06] LABS: Band 55 % (5-11); Hemoglobin 10.9 g/dL (14.0-18.0); Lymphocytes 2 % (21-51); MDiff Complete? YES; Mean Corpuscular HGB CONC 30.7 g/dL (32.0-36.0); Mean Corpuscular Volume 84.8 fL (78.0-98.0); Mean Platelet Volume 9.3 fL (7.4-10.4); Metamyelocyte 1 % (0-0); Monocytes 3 % (0-10); Neutrophil 38 % (42-75); PLT Morphology Comment Appears Adequate; Platelet Count 267 thou/uL (130-400); RBC Distribution Width 14.3 % (11.5-14.5); Reactive Lymphocytes 1 % (0-10); Toxic Granulation SLIGHT; Vacuoles MODERATE; White Blood Cell (WBC) Count 19.4 thou/uL (4.8-10.8)
[2018-06-21 07:21] VITALS: BP 70/42; TEMP 102.4
[2018-06-21] MEDS ORDERED: Dextrose 50% Abboject 50 ML SYRINGE SLOW IVP ONE (07:53)
[2018-06-21] MEDS ORDERED: Insulin Regular 300 UNITS/3 ML VIAL SC SCH (08:00)
--- NOTE | 2018-06-21 08:31 | PDOC.PN ---
- Subjective Encounter Start Date: 06/21/18 Encounter Start Time: 08:29 Mr. Espinoza was seen today in follow-up of severe sepsis. He is on Bipap, and he appear uncomfortable. - Objective Resuscitation Status: Resuscitation Status DNR:Do Not Resuscitate MAR Reviewed: Yes Vital Signs & Weight: Vital Signs (12 hours) Temp Pulse Resp BP Pulse Ox 06/21/18 07:20 102.4 F H 109 H 34 H 70/42 L 95 06/21/18 04:18 102.6 F H 100 54 H 65/34 L 96 06/21/18 02:37 111 H 06/21/18 00:12 101.8 F H 100 32 H 68/41 L 96 06/20/18 23:18 105 H Weight Weight 148 lb 9 oz I&O: 06/20/18 06/21/18 06/22/18 06:59 06:59 06:59 Intake Total 1260 Output Total 20 Balance 1240 Result Diagrams: 06/21/18 06:20 06/21/18 06:20 Phys Exam - Physical Examination HEENT: PERRLA Respiratory: no wheezing, no rales, no rhonchi, clear to auscultation bilateral Cardiovascular: RRR, no significant murmur, no rub rigid, bowel sounds are diminished Musculoskeletal: no edema Dx/Plan (1) Acute hypoxemic respiratory failure Code(s): J96.01 - ACUTE RESPIRATORY FAILURE WITH HYPOXIA Status: Acute (2) Sepsis Code(s): A41.9 - SEPSIS, UNSPECIFIED ORGANISM Status: Acute (3) Acute renal failure Status: Acute (4) Hyperkalemia Code(s): E87.5 - HYPERKALEMIA Status: Acute (5) Metabolic acidosis Code(s): E87.2 - ACIDOSIS Status: Acute - Plan * Severe sepsis, with acute renal failure, metabolic acidosis, and hyperkalemia - Discussed with Dr. Rose. He could possibly have Ischemic bowel as his UA is negative, and CXR is clear, and there is no other obvious source. He has multiple co-morbidities, and at his age would not be a good surgical candidate. * I have discussed this with the family ( sister) and she is ready to withdraw care. * Hyperkalemia- will treat with Calcium chloride, and glucose and insulin * Patient is on broad spectrum antibiotics and BiPAP * The sister would like to speak to a Power Reactor Supervisor before withdrawing care..
[2018-06-21] MEDS: Heparin 5,000 UNITS/ML VIAL SC SCH (08:55)
[2018-06-21] MEDS: Lorazepam 2 MG/ML VIAL SLOW IVP PRN (08:56)
[2018-06-21] MEDS ORDERED: Prevnar 13-Val Conj/PF 0.5 ML SYRINGE IM ONE (09:00)
--- NOTE | 2018-06-21 09:31 | CON ---
DATE OF CONSULTATION: 06/21/2018 This encompasses 70 minutes of time spent with this patient. Of that time, greater than 50% was spen t with the patient and/or in the patient's unit in the hospital REASON FOR CONSULTATION: Sepsis. HISTORY OF PRESENT ILLNESS: The patient is a 73-year-old extremely debilitated male who was just discharged from the hospital about a week ago. He has a history of stroke, aphasia and is quad riplegic due to contractures. He has spent most of the last several years in a skilled nursing. He cam e in last night with low blood pressure and rapid heart rate. He is being treated for sepsis. He coleman s been on BiPAP all night. His family is at the bedside. The patient has demonstrated a clear lack of improvement. He is severely tachypneic and also has a severely elevated potassium. PAST MEDICAL HISTORY: See above. Additionally, he has gastroesophageal reflux, depression, dementia , hypertension, hyperlipidemia. PAST SURGICAL HISTORY: G-tube placement. ALLERGIES: LEVAQUIN. SOCIAL HISTORY: half-way patient. Nonsmoker, does not consume alcohol. FAMILY MEDICAL HISTORY: Unknown. MEDICATIONS PRIOR TO ADMISSION: These were reviewed, see chart. REVIEW OF SYSTEMS: Cannot be obtained secondary to patient being poorly communicative secondary to h is underlying debilitated state. PHYSICAL EXAMINATION: VITAL SIGNS: Temperature 102.4, pulse 109, respirations 34-50, O2 sat 95% on BiPAP, blood pressure r anging between systolic 60s-70s. GENERAL: He is a chronically debilitated male who has a BiPAP mask on. HEENT: Pupils reactive, sclerae are anicteric. Oropharynx clear. NECK: No JVD. LUNGS: Good air movement, but is severely tachypneic. CARDIOVASCULAR: S1, S2 tachycardic. No murmur. ABDOMEN: Distended, decreased bowel sounds. EXTREMITIES: No edema. X-RAY FINDINGS: His chest x-ray showed no evidence of mass, effusion, or infiltrate. He has a left subclavian central line in place. LABORATORY DATA: White blood cell count 19.4, hematocrit 35.6, platelet count 267. Urinalysis showe d no significant white cells. Sodium 143, potassium 7.2, chloride 114, CO2 18, BUN 70, creatinine 3. 4, glucose 85. Lactate 6.0, calcium 7.0. ASSESSMENT: The patient has septic shock, which has been refractory to conservative treatment. He i s severely debilitated. The family seems comfortable with the fact that he is probably going to . I would suspect that the underlying cause is probably ischemic bowel, given the lactic acidosis and the hyperkalemia and the fact that he is rigid in the abdomen on exam. RECOMMENDATIONS: Comfort care. I would not pursue any surgical options in this patient.
[2018-06-21] MEDS ORDERED: Scopolamine 1.5 mg/72 hour Patch TD SCH (10:00)
[2018-06-21] MEDS ORDERED: Lorazepam 2 MG/ML VIAL SLOW IVP PRN (10:53)
[2018-06-21] MEDS ORDERED: Scopolamine 1.5 mg/72 hour Patch TOP SCH (11:00)
[2018-06-21] MEDS ORDERED: Vancomycin HCl 750 MG in Sodium Chloride 0.9% 250 ML 250 ML IVPB SCH (14:00)
--- NOTE | 2018-06-22 11:06 | DS ---
SUBJECTIVE: This is a 73-year-old gentleman who was pronounced on 06/21/2018 at 12:15 p.m. The patient was admitted for multiorgan failure and septic shock. The patient's medical condition faile d all therapies, so he was admitted to hospice, so patient peacefully. No complications were re ported. Body was sent to the [facility] [place]. Family was aware.
--- NOTE | 2018-06-22 22:34 | DS ---
DATE OF ADMISSION: 06/20/2018 DATE OF : 06/21/2018 PRIMARY CARE PHYSICIAN: Leatha Duran M.D. DIAGNOSES: 1. Acute hypoxemic respiratory failure. 2. Severe sepsis. 3. Acute renal failure. 4. Hyperkalemia. 5. Metabolic acidosis. CODE STATUS: DNR. HOSPITAL COURSE: Mr. 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 He has a PEG tube in place. He has had multiple admissions in the last few months and was a dmitted to the hospital from the [facility] due to hypotension and dyspnea. He was found to be in acute hypoxic respiratory failure and was started on BiPAP. He was also hypotensive and wa s given fluid resuscitation and started on empiric IV broad-spectrum antibiotics. His condition was grave at the onset and the family was contemplating hospice care at the time of admission; however, melissa garcía wanted some time to think about it. Therefore, the patient was treated aggressively overnight. His condition worsened and he developed acute renal failure with hyperkalemia, and began to establish multiorgan failure. For this reason, the family made the decision to go ahead and withdraw care. P alliative care team and hospice team, who had seen him before, helped in this transition and the cindy ent was transitioned off of aggressive care. The BiPAP was removed as well as antibiotics and the pa tient peacefully and was pronounced at around 12:55.
--- NOTE | 2018-06-25 16:08 | EKG ---
Test Reason : SEPSIS Blood Pressure : / mmHG Vent. Rate : 129 BPM Atrial Rate : 129 BPM P-R Int : 130 ms QRS Dur : 080 ms QT Int : 304 ms P-R-T Axes : 058 069 075 degrees QTc Int : 445 ms Poor data quality, interpretation may be adversely affected Sinus tachycardia Otherwise normal ECG Confirmed by HERMELINDA HAWKINS, LEILANI ([id number]), publications editor RUDDY CAUSEY ([id number]) on 06/25/2018 4:07:59 PM Referred By: Confirmed By:LEILANI SHEN MD
== END 2018-06-21 15:04 | disposition expired | DRG 871 ==
LOC: ERS 12:21 → IMCU/EMU 16:09
PROVIDERS: ADMIT Internal Medicine; ATTEND Internal Medicine
DX: A41.9 Sepsis, unspecified organism (principal); R53.2 Functional quadriplegia; J69.0 Pneumonitis due to inhalation of food and vomit; J96.01 Acute respiratory failure with hypoxia; R65.21 Severe sepsis with septic shock; N17.9 Acute kidney failure, unspecified; E87.2 Acidosis; R00.0 Tachycardia, unspecified; I95.9 Hypotension, unspecified; I69.820 Aphasia following other cerebrovascular disease; I69.865 Other paralytic syndrome following other cerebrovascular disease, bilateral; Z93.1 Gastrostomy status; F03.90 Unspecified dementia, unspecified severity, without behavioral disturbance, psychotic disturbance, mood disturbance, and anxiety; E78.5 Hyperlipidemia, unspecified; K21.9 Gastro-esophageal reflux disease without esophagitis; F32.9 Major depressive disorder, single episode, unspecified; Z66 Do not resuscitate; Z79.82 Long term (current) use of aspirin; E87.5 Hyperkalemia; R65.20 Severe sepsis without septic shock
CPT/HCPCS: 36556; 51702; 71045; 80048; 80053; 81003; 81015; 83605; 85025; 87040; 87086; 93005; 94660; 94760; 96361; 96365; 96367; 96375; J0131; J1644; J1720; J2060; J2270; J2543; J3370; J7050; S0028